=== PATIENT | female | born 1945 | race Caucasian/White ===

== ENCOUNTER → 2016-09-16 | Outpatient (CLI) | payer MEDICARE, OTHER ==
[2016-09-16 18:41] LABS: COMPLEMENT C4 12.4 MG/DL (10-40); IMMUNOGLOBULIN A 96.3 MG/DL (70-400)
[2016-09-16 19:17] LABS: IMMUNOGLOBULIN E 5.5 IU/ML (<100)
[2016-09-19 10:14] LABS: ALPHA 1 ANTITRYPSIN 153 mg/dL (90-200); D001-IgE D pteronyssinus <0.10 kU/L (Class 0); E001-IgE Cat Epith/Dander < 0.10 kU/L (Class 0); E005-IgE Dog Dander < 0.10 kU/L (Class 0); F002-IgE Milk < 0.10 kU/L (Class 0); F004-IgE Wheat < 0.10 kU/L (Class 0); F013-IgE Peanut < 0.10 kU/L (Class 0); F014-IgE Soybean < 0.10 kU/L (Class 0); F026-IgE Pork < 0.10 kU/L (Class 0); F027-IgE Beef < 0.10 kU/L (Class 0); F245-IgE Egg, Whole < 0.10 kU/L (Class 0); FX02-IgE Food Mix (Sea Foods) Negative (.); G002-IgE Bermuda Grass < 0.10 kU/L (Class 0); G008-IgE Kentucky Bluegrass < 0.10 kU/L (Class 0); M001-IgE Penicillium chrysogen < 0.10 kU/L (Class 0); M002 IgE Cladosporium herbaru < 0.10 kU/L (Class 0); M003 IgE Aspergillus fumigatu < 0.10 kU/L (Class 0); M006-IgE Alternaria alternata < 0.10 kU/L (Class 0); T001-IgE Maple/Box Elder < 0.10 kU/L (Class 0); T003-IgE Common Silver Birch < 0.10 kU/L (Class 0); T007-IgE Oak, White < 0.10 kU/L (Class 0); T008-IgE Elm, American < 0.10 kU/L (Class 0); T015-IgE Ash, White < 0.10 kU/L (Class 0); T041-IgE Hickory, White < 0.10 kU/L (Class 0); W001-IgE Ragweed, Short < 0.10 kU/L (Class 0); W009-IgE Plantain, English < 0.10 kU/L (Class 0); W014-IgE Pigweed, Rough < 0.10 kU/L (Class 0); W018-IgE Sheep Sorrel < 0.10 kU/L (Class 0)
== END ==
LOC: M WUC 15:19
PROVIDERS: ATTEND Allergy & Immunology
DX: J30.1 Allergic rhinitis due to pollen (principal); J30.2 Other seasonal allergic rhinitis; J32.0 Chronic maxillary sinusitis; H10.45 Other chronic allergic conjunctivitis; J45.20 Mild intermittent asthma, uncomplicated; R05 Cough

== ENCOUNTER → 2017-06-26 | Outpatient (CLI) | payer MEDICARE, OTHER ==
[2017-06-26 13:15] LABS: MEAN CORPUSCULAR HGB CONC 33.4 g/dl (32.0-36.5); MEAN CORPUSCULAR VOLUME 89.9 fl (80.0-96.0); PLATELET COUNT, AUTOMATED 361 10^3/uL (150-450)
[2017-06-26 13:51] LABS: ALBUMIN 3.9 GM/DL (3.2-5.2); ALBUMIN/GLOBULIN RATIO 1.77 (1.00-1.93); ALKALINE PHOSPHATASE 95 U/L (45-117); ALT/SGPT 26 U/L (12-78); ANION GAP 9 MEQ/L (8-16); AST/SGOT 18 U/L (7-37); BILIRUBIN,TOTAL 0.6 MG/DL (0.2-1.0); BLOOD UREA NITROGEN 16 MG/DL (7-18); CARBON DIOXIDE LEVEL 24 MEQ/L (21-32); CHLORIDE LEVEL 101 MEQ/L (98-107); CHOLESTEROL LEVEL 214 MG/DL (<200); CREATININE FOR GFR 0.63 MG/DL (0.55-1.02); FREE T4 1.33 NG/DL (0.76-1.46); GLOMERULAR FILTRATION RATE > 60.0 (>39); GLUCOSE, FASTING 93 MG/DL (83-110); POTASSIUM SERUM 4.3 MEQ/L (3.5-5.1); SODIUM LEVEL 134 MEQ/L (136-145); TOTAL PROTEIN 6.1 GM/DL (6.4-8.2); TRIGLYCERIDES LEVEL 83 MG/DL (<150)
== END ==
LOC: M WUC 09:34
PROVIDERS: ATTEND Family Medicine
DX: J44.9 Chronic obstructive pulmonary disease, unspecified (principal); E11.9 Type 2 diabetes mellitus without complications; E78.2 Mixed hyperlipidemia

== ENCOUNTER → 2017-09-11 | Outpatient (REF) | payer MEDICARE, OTHER | LOC: M LAB REF 15:18 | DX: D48.5 Neoplasm of uncertain behavior of skin (principal) | CPT/HCPCS: 88305 ==

== ENCOUNTER 2017-11-17 15:21 | Emergency (ER) | payer MEDICARE, OTHER ==
[2017-11-17 17:36] LABS: BASO # 0.1 10^3/uL (0.0-0.2); BASO % 0.4 % (0.0-1.0); EOS # 0.1 10^3/uL (0.0-0.50); EOS % 0.4 % (0.0-3.0); HEMATOCRIT 41.3 % (36.0-47.0); IMMATURE GRANULOCYTE % 0.5 % (0-3.0); LYMPH # 1.4 10^3/uL (1.5-4.5); MEAN CORPUSCULAR HEMOGLOBIN 30.4 pg (27.0-33.0); MEAN CORPUSCULAR HGB CONC 33.9 g/dl (32.0-36.5); MEAN CORPUSCULAR VOLUME 89.8 fl (80.0-96.0); MONO # 0.7 10^3/uL (0.0-0.8); MONO % 5.8 % (0.0-5.0); NEUTROPHILS # 10.5 10^3/uL (1.8-7.7); NEUTROPHILS % 81.9 % (36.0-66.0); PLATELET COUNT, AUTOMATED 424 10^3/uL (150-450); RED CELL DISTRIBUTION WIDTH 13.4 % (11.5-14.5); WHITE BLOOD COUNT 12.9 10^3/uL (4.0-10.0)
[2017-11-17 17:47] LABS: INR 0.93; PROTHROMBIN TIME 12.5 SECONDS (12.4-14.5)
[2017-11-17 17:48] LABS: PARTIAL THROMBOPLASTIN TIME 27.1 SECONDS (26.8-37.9)
[2017-11-17 17:49] LABS: ANION GAP 6 MEQ/L (8-16); BLOOD UREA NITROGEN 21 MG/DL (7-18); CALCIUM LEVEL 9.5 MG/DL (8.8-10.2); CARBON DIOXIDE LEVEL 27 MEQ/L (21-32); CHLORIDE LEVEL 101 MEQ/L (98-107); CK-MB VALUE MASS 5.2 NG/ML (<3.6); CPK CREATINE PHOSPHOKINASE 265 U/L (26-192); CREATININE FOR GFR 0.64 MG/DL (0.55-1.30); GLOMERULAR FILTRATION RATE > 60.0 (>39); GLUCOSE, FASTING 109 MG/DL (70-100); MB/CK RELATIVE INDEX 1.96 (< OR =4); POTASSIUM SERUM 4.6 MEQ/L (3.5-5.1); SODIUM LEVEL 134 MEQ/L (136-145); TROPONIN I < 0.02 NG/ML (< 0.10)
[2017-11-17] MEDS: MECLIZINE 25 MG TABLET PO ×2 (18:15)
[2017-11-17] MEDS: LABETALOL HCL 100 MG/20 ML VIAL IV ×2 (18:16)
== END 2017-11-17 20:01 | disposition home or self-care (01) ==
LOC: M ED 15:21
DX: R42 Dizziness and giddiness (principal); H83.09 Labyrinthitis, unspecified ear; I10 Essential (primary) hypertension; J45.909 Unspecified asthma, uncomplicated; K21.9 Gastro-esophageal reflux disease without esophagitis; Z79.899 Other long term (current) drug therapy; Z88.8 Allergy status to other drugs, medicaments and biological substances; Z87.891 Personal history of nicotine dependence; Z98.890 Other specified postprocedural states; Z82.49 Family history of ischemic heart disease and other diseases of the circulatory system
CPT/HCPCS: 71046

== ENCOUNTER → 2017-11-18 | Outpatient (REF) | payer MEDICARE, OTHER ==
[2017-11-18 20:37] LABS: ANION GAP 6 MEQ/L (8-16); BLOOD UREA NITROGEN 19 MG/DL (7-18); CALCIUM LEVEL 9.1 MG/DL (8.8-10.2); CARBON DIOXIDE LEVEL 24 MEQ/L (21-32); CHLORIDE LEVEL 104 MEQ/L (98-107); CK-MB VALUE MASS 3.6 NG/ML (<3.6); CPK CREATINE PHOSPHOKINASE 214 U/L (26-192); CREATININE FOR GFR 0.66 MG/DL (0.55-1.30); GLOMERULAR FILTRATION RATE > 60.0 (>39); GLUCOSE, FASTING 97 MG/DL (70-100); MB/CK RELATIVE INDEX 1.68 (< OR =4); POTASSIUM SERUM 4.5 MEQ/L (3.5-5.1); SODIUM LEVEL 134 MEQ/L (136-145); TROPONIN I < 0.02 NG/ML (< 0.10)
== END ==
LOC: M SFHCADAM 14:22
DX: R94.31 Abnormal electrocardiogram [ECG] [EKG] (principal)
CPT/HCPCS: 82550

== ENCOUNTER → 2017-11-19 | Outpatient (CLI) | payer MEDICARE, OTHER ==
[~2017-11-19] MED LIST: PROHANCE 279.3MG/ML 15ML VIAL (A9576) As Ordered
== END ==
LOC: M RAD 18:34
DX: I65.23 Occlusion and stenosis of bilateral carotid arteries (principal); R27.0 Ataxia, unspecified; I10 Essential (primary) hypertension
CPT/HCPCS: A9576

== ENCOUNTER → 2017-11-21 | Outpatient (CLI) | payer MEDICARE, OTHER | LOC: M RAD 11:57 | DX: I10 Essential (primary) hypertension (principal); R27.0 Ataxia, unspecified; R94.31 Abnormal electrocardiogram [ECG] [EKG] ==

== ENCOUNTER → 2017-11-21 | Outpatient (CLI) | payer MEDICARE, OTHER | LOC: M CARPUL 10:47 | DX: R94.31 Abnormal electrocardiogram [ECG] [EKG] (principal); I10 Essential (primary) hypertension; R27.0 Ataxia, unspecified | CPT/HCPCS: 93880 ==

== ENCOUNTER → 2017-12-27 | Outpatient (CLI) | payer MEDICARE, OTHER ==
[2017-12-27 13:12] LABS: HEMATOCRIT 39.4 % (36.0-47.0); HEMOGLOBIN 13.8 g/dl (12.0-15.5); MEAN CORPUSCULAR HEMOGLOBIN 30.7 pg (27.0-33.0); MEAN CORPUSCULAR VOLUME 87.6 fl (80.0-96.0); PLATELET COUNT, AUTOMATED 438 10^3/uL (150-450); WHITE BLOOD COUNT 8.5 10^3/uL (4.0-10.0)
[2017-12-27 13:25] LABS: ALBUMIN 4.1 GM/DL (3.2-5.2); ALBUMIN/GLOBULIN RATIO 1.58 (1.00-1.93); ALKALINE PHOSPHATASE 120 U/L (45-117); ALT/SGPT 32 U/L (12-78); ANION GAP 9 MEQ/L (8-16); AST/SGOT 25 U/L (7-37); BILIRUBIN,TOTAL 0.8 MG/DL (0.2-1.0); BLOOD UREA NITROGEN 20 MG/DL (7-18); CALCIUM LEVEL 9.3 MG/DL (8.8-10.2); CARBON DIOXIDE LEVEL 29 MEQ/L (21-32); CHLORIDE LEVEL 93 MEQ/L (98-107); CHOLESTEROL LEVEL 113 MG/DL (<200); CHOLESTEROL RISK RATIO 1.982 (<5); CREATININE FOR GFR 0.69 MG/DL (0.55-1.30); GLOMERULAR FILTRATION RATE > 60.0 (>39); GLUCOSE, FASTING 111 MG/DL (70-100); HDL CHOLESTEROL 57 MG/DL (>40); LDL CHOLESTEROL 37.8 MG/DL (<100); NON-HDL-C 56 MG/DL; POTASSIUM SERUM 3.8 MEQ/L (3.5-5.1); SODIUM LEVEL 131 MEQ/L (136-145); TOTAL PROTEIN 6.7 GM/DL (6.4-8.2); TRIGLYCERIDES LEVEL 91 MG/DL (<150)
[2017-12-27 13:39] LABS: ESTIMATED AVERAGE GLUCOSE 140 MG/DL (60-110); HEMOGLOBIN A1c 6.5 %
== END ==
LOC: M WUC 09:44
DX: I63.9 Cerebral infarction, unspecified (principal); E78.2 Mixed hyperlipidemia; E74.9 Disorder of carbohydrate metabolism, unspecified; Z79.899 Other long term (current) drug therapy
CPT/HCPCS: 80053

== ENCOUNTER → 2018-01-09 | Outpatient (CLI) | payer MEDICARE, OTHER | LOC: M WHC 10:15 | DX: Z12.31 Encounter for screening mammogram for malignant neoplasm of breast (principal); Z90.12 Acquired absence of left breast and nipple; Z85.3 Personal history of malignant neoplasm of breast | CPT/HCPCS: 77067 ==

== ENCOUNTER → 2018-04-01 | Outpatient (CLI) | payer MEDICARE, OTHER ==
[2018-04-01 12:53] LABS: ANION GAP 11 MEQ/L (8-16); BLOOD UREA NITROGEN 19 MG/DL (7-18); CALCIUM LEVEL 9.1 MG/DL (8.8-10.2); CARBON DIOXIDE LEVEL 28 MEQ/L (21-32); CHLORIDE LEVEL 88 MEQ/L (98-107); CREATININE FOR GFR 0.64 MG/DL (0.55-1.30); GLOMERULAR FILTRATION RATE > 60.0 (>39); GLUCOSE, FASTING 105 MG/DL (70-100); POTASSIUM SERUM 4.1 MEQ/L (3.5-5.1); SODIUM LEVEL 127 MEQ/L (136-145)
[2018-04-01 13:48] LABS: ESTIMATED AVERAGE GLUCOSE 123 MG/DL (60-110); HEMOGLOBIN A1c 5.9 %
== END ==
LOC: M WUC 10:25
DX: R73.03 Prediabetes (principal)
CPT/HCPCS: 83036

== ENCOUNTER 2018-07-29 14:29 | Day surgery (SDC) | payer MEDICARE, OTHER ==
[~2018-07-29 14:29] MED LIST changes: +LIDOCAINE 2% INJ 100 MG/5 ML SDV (FOR ANES.) As Ordered; +MIDAZOLAM INJ 2 MG/2 ML VIAL (J2250) As Ordered; -PROHANCE 279.3MG/ML 15ML VIAL (A9576) As Ordered; +PROPOFOL 500 MG/50 ML VIAL As Ordered; +fentaNYL 100 MCG/2 ML INJECTION (J3010) As Ordered
[2018-07-29] MEDS ORDERED: ceFAZolin 1GM INJ (J0690 PER 500MG) As Ordered (15:10)
[2018-07-29] MEDS: ceFAZolin SOD 1 GM in D5W MINI-BAG PLUS 50 ML IV (15:30)
[2018-07-29] MEDS: LIDOCAINE 1% SDV INJ 30 ML VIAL As Ordered (15:43)
== END 2018-07-29 16:40 | disposition home or self-care (01) ==
LOC: M SDC 14:29
DX: I63.9 Cerebral infarction, unspecified (principal); I10 Essential (primary) hypertension; E78.5 Hyperlipidemia, unspecified; Z79.899 Other long term (current) drug therapy; K21.9 Gastro-esophageal reflux disease without esophagitis; Z79.01 Long term (current) use of anticoagulants; Z79.82 Long term (current) use of aspirin; Z92.21 Personal history of antineoplastic chemotherapy; J45.909 Unspecified asthma, uncomplicated
CPT/HCPCS: 33282

== ENCOUNTER → 2018-10-29 | Outpatient (REF) | payer MEDICARE, OTHER ==
[~2018-10-29] MED LIST changes: +AMLO5TAB6 PO; +ASPI1TAB PO; +ATOR40TA75 PO; +AZEL0.055; +CALC1TAB26 PO; +GLUC1CAP10 PO; +INDA25TAB PO; +IRBE150T12 PO; -LIDOCAINE 2% INJ 100 MG/5 ML SDV (FOR ANES.) As Ordered; +MECL-68 PO; +MELO7.5T7 PO; -MIDAZOLAM INJ 2 MG/2 ML VIAL (J2250) As Ordered; +MONT10TA2 PO; +MUCI30TA5 PO; +PANT40TA3 PO; +PROAAER10 INH; -PROPOFOL 500 MG/50 ML VIAL As Ordered; +SUPETAB25 PO; +SYMB16INH INH; +TESS100C PO; +VALS1TAB47 PO; +VITA100067 PO; +WOMETAB9 PO; +ZYRT10CA5 PO; -fentaNYL 100 MCG/2 ML INJECTION (J3010) As Ordered
[2018-10-29 13:02] LABS: HEMATOCRIT 37.8 % (36.0-47.0); HEMOGLOBIN 13.4 g/dl (12.0-15.5); MEAN CORPUSCULAR HEMOGLOBIN 30.8 pg (27.0-33.0); MEAN CORPUSCULAR HGB CONC 35.4 g/dl (32.0-36.5); MEAN CORPUSCULAR VOLUME 86.9 fl (80.0-96.0); PLATELET COUNT, AUTOMATED 452 10^3/uL (150-450); RED BLOOD COUNT 4.35 10^6/uL (4.00-5.40); WHITE BLOOD COUNT 9.4 10^3/uL (4.0-10.0)
[2018-10-29 13:18] LABS: ALBUMIN 4.1 GM/DL (3.2-5.2); ALT/SGPT 30 U/L (12-78); BILIRUBIN,TOTAL 1.1 MG/DL (0.2-1.0); BLOOD UREA NITROGEN 11 MG/DL (7-18); CALCIUM LEVEL 9.4 MG/DL (8.8-10.2); CARBON DIOXIDE LEVEL 30 MEQ/L (21-32); CHLORIDE LEVEL 83 MEQ/L (98-107); CHOLESTEROL LEVEL 139 MG/DL (<200); CHOLESTEROL RISK RATIO 1.759 (<5); CREATININE FOR GFR 0.51 MG/DL (0.55-1.30); GLOMERULAR FILTRATION RATE > 60.0 (>39); GLUCOSE, FASTING 109 MG/DL (70-100); HDL CHOLESTEROL 79 MG/DL (>40); LDL CHOLESTEROL 47 MG/DL (<100); NON-HDL-C 60 MG/DL; POTASSIUM SERUM 3.9 MEQ/L (3.5-5.1); SODIUM LEVEL 121 MEQ/L (136-145); TOTAL PROTEIN 6.6 GM/DL (6.4-8.2); TRIGLYCERIDES LEVEL 63 MG/DL (<150)
[2018-10-29 14:11] LABS: HEMOGLOBIN A1c 5.9 %
== END ==
LOC: M SFHCADAM 11:11
PROVIDERS: ATTEND Family Medicine
DX: R73.03 Prediabetes (principal); E78.2 Mixed hyperlipidemia; J44.9 Chronic obstructive pulmonary disease, unspecified; I63.9 Cerebral infarction, unspecified
CPT/HCPCS: 80053; 80061; 83036; 85027; G0463

== ENCOUNTER → 2019-01-12 | Outpatient (CLI) | payer MEDICARE, OTHER ==
[~2019-01-12] MED LIST changes: -ASPI1TAB PO; +ASPI81TA26 PO; -VALS1TAB47 PO; +VALS1TAB67 PO
--- NOTE | 2019-01-12 14:09 | REP ---
RIGHT BREAST MAMMOGRAM WITH 3D TOMOSYNTHESIS: HISTORY: Left breast cancer and mastectomy 1989. COMPARISON: 01/09/2018 as well as multiple other prior studies. There is moderate fibroglandular tissue in the right breast. There is no change since the prior studies. There is no new mass or architectural distortion. No clustered microcalcifications are seen, with scattered benign appearing calcifications diffusely. IMPRESSION: BIRADS 1: BI-RADS/ACR category 1 mammogram. Negative Mammogram. ACR 1 negative mammogram right breast in this patient status post left mastectomy. Suggest followup mammogram in 1 year. This mammogram was interpreted with the aid of an FDA-approved computer-aided detection system. A. Negative x-ray reports should not delay biopsy if a dominant or clinically suspicious mass is present. B. Four to eight percent of cancers are not identified by x-ray. C. Adenosis and dense breasts may obscure an underlying neoplasm. The patient states she/he had a clinical breast exam in December 2018. The patient letter being requested is M1.
== END ==
LOC: M WHC 10:34
PROVIDERS: ATTEND Nurse Practitioner Family
DX: Z12.31 Encounter for screening mammogram for malignant neoplasm of breast (principal); Z85.3 Personal history of malignant neoplasm of breast; Z90.12 Acquired absence of left breast and nipple
CPT/HCPCS: 77063; 77067; G0463

== ENCOUNTER → 2019-01-19 | Outpatient (CLI) | payer MEDICARE, OTHER ==
[2019-01-19 13:22] LABS: IMMUNOGLOBULIN A 91.7 MG/DL (70-400); IMMUNOGLOBULIN M 96.8 MG/DL (40-230)
--- NOTE | 2019-01-20 10:47 | REP ---
Chest two views HISTORY: Checkup exam Comparison: 11/17/2017 The lungs are clear. The heart is normal in size. The pulmonary vasculature is normal in appearance. The patient is status post left mastectomy. The bony structure is intact. IMPRESSION: No acute disease. Electronically Signed by Christiano Soliz MD 01/19/2019 09:23 A
[2019-01-25 16:31] LABS: D001-IgE D pteronyssinus <0.10 kU/L (Class 0); E001-IgE Cat Epith/Dander < 0.10 kU/L (Class 0); E005-IgE Dog Dander < 0.10 kU/L (Class 0); F002-IgE Milk < 0.10 kU/L (Class 0); F004-IgE Wheat < 0.10 kU/L (Class 0); F013-IgE Peanut < 0.10 kU/L (Class 0); F014-IgE Soybean < 0.10 kU/L (Class 0); F026-IgE Pork < 0.10 kU/L (Class 0); F027-IgE Beef < 0.10 kU/L (Class 0); F245-IgE Egg, Whole < 0.10 kU/L (Class 0); FX02-IgE Food Mix (Sea Foods) Negative (.); G002-IgE Bermuda Grass < 0.10 kU/L (Class 0); G008-IgE Kentucky Bluegrass < 0.10 kU/L (Class 0); M001-IgE Penicillium chrysogen < 0.10 kU/L (Class 0); M002 IgE Cladosporium herbaru < 0.10 kU/L (Class 0); M003 IgE Aspergillus fumigatu < 0.10 kU/L (Class 0); M006-IgE Alternaria alternata < 0.10 kU/L (Class 0); T001-IgE Maple/Box Elder < 0.10 kU/L (Class 0); T003-IgE Common Silver Birch < 0.10 kU/L (Class 0); T006-IgE Cedar, Mountain < 0.10 kU/L (Class 0); T007-IgE Oak, White < 0.10 kU/L (Class 0); T008-IgE Elm, American < 0.10 kU/L (Class 0); T015-IgE Ash, White < 0.10 kU/L (Class 0); T041-IgE Hickory, White < 0.10 kU/L (Class 0); T070-IgE White Mulberry < 0.10 kU/L (Class 0); W001-IgE Ragweed, Short < 0.10 kU/L (Class 0); W009-IgE Plantain, English < 0.10 kU/L (Class 0); W014-IgE Pigweed, Rough < 0.10 kU/L (Class 0); W018-IgE Sheep Sorrel < 0.10 kU/L (Class 0)
== END ==
LOC: M WUC 08:44
PROVIDERS: ATTEND Nurse Practitioner Family
DX: J45.20 Mild intermittent asthma, uncomplicated (principal); J30.1 Allergic rhinitis due to pollen; J30.89 Other allergic rhinitis; J32.0 Chronic maxillary sinusitis

== ENCOUNTER → 2019-02-02 | Outpatient (CLI) | payer MEDICARE, OTHER ==
--- NOTE | 2019-02-02 15:49 | REP ---
CT of the chest without IV contrast: There are no comparison chest CTs. There is a comparison plain film study dated 01/19/2019. The patient has history of breast carcinoma. There is a left breast prosthesis. There are surgical clips in the left axilla. The patient has additional history of appendectomy and ovarian wedge resection. There are no pulmonary infiltrates. There are no pleural effusions. There are no lung masses or nodules. There is no mediastinal or axillary lymph node enlargement. In the absence of IV contrast the study is insensitive for hilar lymph node enlargement. The thoracic aorta is unremarkable. There is calcified atheroma in the coronary arteries. Cardiac size is normal. In the upper abdomen there is no adrenal mass. There is calcified vascular atheroma in the splenic artery. Impression: Essentially negative CT study of the chest. There are no lung masses or nodules. There are no acute infiltrates or pleural effusions. There is no adenopathy. Left mastectomy with breast implant, appendectomy and history of ovarian wedge resection. Electronically Signed by Marcos Mosquera MD 02/02/2019 03:41 P
== END ==
LOC: M RAD 14:25
PROVIDERS: ATTEND Nurse Practitioner Family
DX: R91.8 Other nonspecific abnormal finding of lung field (principal); R05 Cough

== ENCOUNTER → 2019-03-25 | Outpatient (CLI) | payer MEDICARE, OTHER ==
[~2019-03-25] MED LIST changes: -MECL-68 PO; +MECL1TAB31 PO
[2019-03-25 15:25] LABS: IMMUNOGLOBULIN A 93.3 MG/DL (70-400); IMMUNOGLOBULIN M 99.7 MG/DL (40-230)
[2019-03-29 11:21] LABS: D001-IgE D pteronyssinus <0.10 kU/L (Class 0); E001-IgE Cat Epith/Dander < 0.10 kU/L (Class 0); E003-IGE HORSE EPITHELIA/DAND <0.10 kU/L (Class 0); E004-IGE COW DANDER <0.10 kU/L (Class 0); E005-IgE Dog Dander < 0.10 kU/L (Class 0); F002-IgE Milk < 0.10 kU/L (Class 0); F004-IgE Wheat < 0.10 kU/L (Class 0); F013-IgE Peanut < 0.10 kU/L (Class 0); F014-IgE Soybean < 0.10 kU/L (Class 0); F026-IgE Pork < 0.10 kU/L (Class 0); F027-IgE Beef < 0.10 kU/L (Class 0); F245-IgE Egg, Whole < 0.10 kU/L (Class 0); FX02-IgE Food Mix (Sea Foods) Negative (.); G002-IgE Bermuda Grass < 0.10 kU/L (Class 0); G008-IgE Kentucky Bluegrass < 0.10 kU/L (Class 0); M001-IgE Penicillium chrysogen < 0.10 kU/L (Class 0); M002 IgE Cladosporium herbaru < 0.10 kU/L (Class 0); M003 IgE Aspergillus fumigatu < 0.10 kU/L (Class 0); M006-IgE Alternaria alternata < 0.10 kU/L (Class 0); T001-IgE Maple/Box Elder < 0.10 kU/L (Class 0); T003-IgE Common Silver Birch < 0.10 kU/L (Class 0); T006-IgE Cedar, Mountain < 0.10 kU/L (Class 0); T007-IgE Oak, White < 0.10 kU/L (Class 0); T008-IgE Elm, American < 0.10 kU/L (Class 0); T015-IgE Ash, White < 0.10 kU/L (Class 0); T041-IgE Hickory, White < 0.10 kU/L (Class 0); T070-IgE White Mulberry < 0.10 kU/L (Class 0); W001-IgE Ragweed, Short < 0.10 kU/L (Class 0); W009-IgE Plantain, English < 0.10 kU/L (Class 0); W014-IgE Pigweed, Rough < 0.10 kU/L (Class 0); W018-IgE Sheep Sorrel < 0.10 kU/L (Class 0)
== END ==
LOC: M WUC 10:50
PROVIDERS: ATTEND Nurse Practitioner Family
DX: J30.1 Allergic rhinitis due to pollen (principal); J30.89 Other allergic rhinitis

== ENCOUNTER → 2019-10-25 | Outpatient (CLI) | payer MEDICARE, OTHER ==
[~2019-10-25] MED LIST changes: -IRBE150T12 PO; +IRBE150T7 PO; -MONT10TA2 PO; +MONT10TA4 PO
[2019-10-25 11:19] LABS: HEMATOCRIT 38.1 % (36.0-47.0); HEMOGLOBIN 13.4 g/dl (12.0-15.5); MEAN CORPUSCULAR HEMOGLOBIN 31.7 pg (27.0-33.0); MEAN CORPUSCULAR HGB CONC 35.2 g/dl (32.0-36.5); MEAN CORPUSCULAR VOLUME 90.1 fl (80.0-96.0); PLATELET COUNT, AUTOMATED 399 10^3/uL (150-450); RED BLOOD COUNT 4.23 10^6/uL (4.00-5.40); WHITE BLOOD COUNT 6.7 10^3/uL (4.0-10.0)
[2019-10-25 11:59] LABS: HEMOGLOBIN A1c 5.8 %
[2019-10-25 12:36] LABS: ALT/SGPT 38 U/L (12-78); BILIRUBIN,TOTAL 0.9 MG/DL (0.2-1.0); BLOOD UREA NITROGEN 15 MG/DL (7-18); CALCIUM LEVEL 9.3 MG/DL (8.8-10.2); CARBON DIOXIDE LEVEL 28 MEQ/L (21-32); CHLORIDE LEVEL 90 MEQ/L (98-107); CHOLESTEROL LEVEL 130 MG/DL (<200); CHOLESTEROL RISK RATIO 1.585 (<5); CREATININE FOR GFR 0.54 MG/DL (0.55-1.30); GLOMERULAR FILTRATION RATE > 60.0 (>39); GLUCOSE, FASTING 96 MG/DL (70-100); HDL CHOLESTEROL 82 MG/DL (>40); LDL CHOLESTEROL 42 MG/DL (<100); NON-HDL-C 48 MG/DL; SODIUM LEVEL 124 MEQ/L (136-145); TOTAL PROTEIN 6.1 GM/DL (6.4-8.2); TRIGLYCERIDES LEVEL 32 MG/DL (<150)
== END ==
LOC: M WUC 09:55
PROVIDERS: ATTEND Family Medicine
DX: I11.9 Hypertensive heart disease without heart failure (principal); R73.03 Prediabetes; E78.2 Mixed hyperlipidemia; K21.9 Gastro-esophageal reflux disease without esophagitis

== ENCOUNTER → 2020-01-14 | Outpatient (CLI) | payer MEDICARE, OTHER ==
--- NOTE | 2020-01-14 14:55 | REPMRS ---
Patient History The patient states she had a clinical breast exam in December 2019. Family history of breast cancer at age 65 in sister. Malignant mastectomy of the left breast, October 19, 1989. Chemotherapy, 1989. Took tamoxifen for 5 years. Digital Woman Screen Mammo: January 14, 2020 - Exam #: [id number] Bilateral CC and MLO view(s) were taken. Technologist: Viviane Torres, Technologist Prior study comparison: January 12, 2019, bilateral digital woman screen mammo performed at [facility]. January 09, 2018, digital woman screen mammo performed at [facility]. 2017, bilateral screening 3D/tomosynthesis, performed at [facility]. FINDINGS: The breast tissue is heterogeneously dense. This may lower the sensitivity of mammography. The Volpara volumetric breast density category is: C. There has been no change in the appearance of the ri breast parenchyma in the interval since the prior examination. No mass, architectural distortion, or microcalcific grouping has developed. No suspicious finding. 3-D tomosynthesis shows no additional findings. Assessment: BI-RADS/ACR category 2 mammogram. Benign Findings. Recommendation Routine screening mammogram of the right breast in 1 year. This mammogram was interpreted with the aid of an FDA-approved computer-aided dectection system. Electronically Signed By: Andrez Mendoza MD 01/14/20 [id number]
== END ==
LOC: M WHC 13:22
PROVIDERS: ATTEND Nurse Practitioner Family
DX: Z12.31 Encounter for screening mammogram for malignant neoplasm of breast (principal); Z90.12 Acquired absence of left breast and nipple; Z85.3 Personal history of malignant neoplasm of breast; Z80.3 Family history of malignant neoplasm of breast; Z92.21 Personal history of antineoplastic chemotherapy; Z92.29 Personal history of other drug therapy
CPT/HCPCS: 77063; 77067; G0463

== ENCOUNTER → 2020-08-25 | Outpatient (REF) | payer MEDICARE, OTHER ==
[~2020-08-25] MED LIST changes: +ADVA230A INH; +AMLO1TAB24 PO; -AMLO5TAB6 PO; +CLOP75TA2 PO; +MONT10TA10 PO; -MONT10TA4 PO; +PANT40TA29 PO; -PANT40TA3 PO
== END ==
LOC: M LAB REF 09:24
PROVIDERS: ATTEND Dermatology
DX: D23.39 Other benign neoplasm of skin of other parts of face (principal)

== ENCOUNTER 2020-08-26 00:06 | Emergency (ER) | payer MEDICARE, OTHER ==
[~2020-08-26] VITALS: Ht 147.3 cm; Wt 49.3 kg
[~2020-08-26 00:06] MED LIST changes: -ADVA230A INH; -CLOP75TA2 PO; -MONT10TA10 PO; +MONT5TAB2 PO
[2020-08-26] MEDS ORDERED: ADVA230A INH (00:18)
[2020-08-26] MEDS ORDERED: CLOP75TA2 PO (00:18)
[2020-08-26 06:41] VITALS: BP 136/74
== END 2020-08-26 06:43 | disposition home or self-care (01) ==
LOC: M ED 00:06
DX: L76.31 Postprocedural hematoma of skin and subcutaneous tissue following a dermatologic procedure (principal); T45.525A Adverse effect of antithrombotic drugs, initial encounter; I10 Essential (primary) hypertension; E78.5 Hyperlipidemia, unspecified; E28.2 Polycystic ovarian syndrome; Z86.73 Personal history of transient ischemic attack (TIA), and cerebral infarction without residual deficits; Z85.3 Personal history of malignant neoplasm of breast; Z85.828 Personal history of other malignant neoplasm of skin; Z79.82 Long term (current) use of aspirin; Z79.899 Other long term (current) drug therapy; Z88.8 Allergy status to other drugs, medicaments and biological substances

== ENCOUNTER 2020-10-27 12:00 | Emergency (ER) | payer MEDICARE, OTHER ==
[~2020-10-27] VITALS: Ht 147.3 cm; Wt 47.7 kg
[~2020-10-27 12:00] MED LIST changes: +ADVA230A INH; +CLOP75TA2 PO; +MONT10TA10 PO; -MONT5TAB2 PO
--- NOTE | 2020-10-27 12:34 | REP ---
INDICATION: fall on blood thinner. COMPARISON: Comparison CT study of the brain November 17, 2017.. TECHNIQUE: Helical scanning is acquired. 5 mm axial images were reformatted. Coronal MPR images were generated. FINDINGS: Bone window settings demonstrate an intact bony calvarium. No skull fracture is seen. There is moderate vascular calcification in the distal vertebral and distal internal carotid arteries bilaterally. The visualized paranasal sinuses are clear. No intraorbital abnormality is seen. There is generalized volume loss. There are periventricular white matter low-density areas bilaterally consistent with small vessel atherosclerotic changes. There is an old lacunar infarct in the left thalamus. There is no evidence of intracranial hemorrhage. No mass, acute infarction, extra-axial fluid collection, or midline shift. IMPRESSION: Generalized volume loss. Small vessel atherosclerotic changes and vascular calcification unchanged from the November 17, 2017 prior study. There is an old lacunar infarct in the left thalamus. No acute intracranial abnormality.. <Electronically signed by Andrez Mendoza > 10/27/20 [id number]
--- NOTE | 2020-10-27 12:37 | REP ---
INDICATION: fall on blood thinner. COMPARISON: None. TECHNIQUE: Helical scanning is acquired and overlapping 2 mm high resolution axial images were generated and reviewed at bone and soft tissue window settings. Coronal and sagittal multiplanar re-formations images are generated. FINDINGS: There is straightening of the normal cervical lordosis. The C3-4, C4-5, and C5-6 disc spaces are fused. There is discogenic spurring and osteophytic ridging posteriorly at C4-5 and C5-6 and to a lesser extent at C6-7. No fracture is seen. The right C3-4 facet joint appears ankylosed as well. Degenerative disc disease is noted at C2-3. Vascular calcification is visible. No perispinal or intraspinal hematoma is appreciated. There is right-sided uncovertebral spurring at C5-6. A levoconvex curve is noted in the cervical spine on coronal multiplanar re-formation images.. IMPRESSION: Advanced degenerative spondylosis change. Ankylosis across the C3 through C6 disc spaces and. Fusion of the right C3-4 facet. Levoconvex curvature consistent with splinting. No fracture or other acute traumatic abnormality. Vascular calcification.. <Electronically signed by Andrez Mendoza > 10/27/20 [id number]
--- NOTE | 2020-10-27 12:39 | REP ---
INDICATION: fall on blood thinner. COMPARISON: NONE. TECHNIQUE: Helical scanning is acquired and 2 mm axial images re-formatted. Coronal MPR images are generated and reviewed. FINDINGS: There is soft tissue swelling over the left periorbital region and over the nasal bone. There is a dressing over the nasal bone but a nasal bone itself appears to be intact. Inferior maxillary spine is not fractured or displaced. Maxillary sinuses are clear. Ethmoid air cells and frontal sinuses are clear. Sphenoid sinus on the left shows minimal mucosal thickening. Mastoid aeration is normal. Zygomatic arches are intact. No mandibular fracture is appreciated. Orbital margins are intact. IMPRESSION: Periorbital and nasal soft tissue swelling. No facial fracture appreciated. <Electronically signed by Andrez Mendoza > 10/27/20 [id number]
[2020-10-27] MEDS ORDERED: LIDOCAINE W/EPINEPHRINE 1% 20ML VIAL SC ONE (12:45)
[2020-10-27] MEDS ORDERED: LIDOCAINE 1% MDV 20ML VIAL SC ONE (12:50)
[2020-10-27] MEDS ORDERED: CEPH500C PO (13:35)
[2020-10-27] MEDS ORDERED: NEOSPORIN OINT 0.9 GM PKT TOP ONE (13:35)
[2020-10-27 13:53] VITALS: BP 132/63
--- NOTE | 2020-10-27 19:28 | ED PDOC ---
Post-Departure Follow-Up ct c spine faxed to dr burns for fu Marivel Daniel MD Oct 27, 2020 19:28
== END 2020-10-27 14:02 | disposition home or self-care (01) ==
LOC: M ED 12:00
DX: S09.90XA Unspecified injury of head, initial encounter (principal); S00.93XA Contusion of unspecified part of head, initial encounter; S01.21XA Laceration without foreign body of nose, initial encounter; S01.511A Laceration without foreign body of lip, initial encounter; W18.09XA Striking against other object with subsequent fall, initial encounter; Y92.099 Unspecified place in other non-institutional residence as the place of occurrence of the external cause; Y93.9 Activity, unspecified; Y99.9 Unspecified external cause status; M47.812 Spondylosis without myelopathy or radiculopathy, cervical region; M45.2 Ankylosing spondylitis of cervical region; M43.22 Fusion of spine, cervical region; M50.80 Other cervical disc disorders, unspecified cervical region; G31.9 Degenerative disease of nervous system, unspecified; I67.2 Cerebral atherosclerosis; Z86.73 Personal history of transient ischemic attack (TIA), and cerebral infarction without residual deficits; I10 Essential (primary) hypertension; K21.9 Gastro-esophageal reflux disease without esophagitis; J45.909 Unspecified asthma, uncomplicated; Z79.82 Long term (current) use of aspirin; Z79.84 Long term (current) use of oral hypoglycemic drugs; Z79.899 Other long term (current) drug therapy; Z88.8 Allergy status to other drugs, medicaments and biological substances

== ENCOUNTER → 2020-12-04 | Outpatient (CLI) | payer MEDICARE, OTHER ==
[~2020-12-04] MED LIST changes: +CEPH500C PO
[2020-12-04 13:59] LABS: ALBUMIN 3.8 GM/DL (3.2-5.2); ALT/SGPT 32 U/L (12-78); BILIRUBIN,TOTAL 0.6 MG/DL (0.2-1.0); BLOOD UREA NITROGEN 23 MG/DL (7-18); CALCIUM LEVEL 9.1 MG/DL (8.8-10.2); CARBON DIOXIDE LEVEL 28 MEQ/L (21-32); CHLORIDE LEVEL 104 MEQ/L (98-107); CHOLESTEROL LEVEL 136 MG/DL (<200); CHOLESTEROL RISK RATIO 1.837 (<5); CREATININE FOR GFR 0.56 MG/DL (0.55-1.30); GLOMERULAR FILTRATION RATE > 60.0 (>39); GLUCOSE, FASTING 99 MG/DL (70-100); HDL CHOLESTEROL 74 MG/DL (>40); LDL CHOLESTEROL 47 MG/DL (<100); NON-HDL-C 62 MG/DL; POTASSIUM SERUM 4.3 MEQ/L (3.5-5.1); SODIUM LEVEL 137 MEQ/L (136-145); TOTAL PROTEIN 6.2 GM/DL (6.4-8.2); TRIGLYCERIDES LEVEL 76 MG/DL (<150)
[2020-12-04 15:33] LABS: HEMOGLOBIN A1c 5.7 %
== END ==
LOC: M WUC 09:13
PROVIDERS: ATTEND Family Medicine
DX: I11.9 Hypertensive heart disease without heart failure (principal); R73.03 Prediabetes; E78.2 Mixed hyperlipidemia

== ENCOUNTER → 2020-12-12 | Outpatient (CLI) | payer MEDICARE, OTHER ==
--- NOTE | 2020-12-12 16:42 | REP ---
INDICATION: ARTHRITIS OF RIGHT SHOULDER COMPARISON: None. TECHNIQUE: Four views right shoulder. FINDINGS: There is no evidence of acute fracture, dislocation, or intrinsic bone disease.The joint spaces appear unremarkable with no significant arthritic change. There are mild vascular calcifications in the axillary region. IMPRESSION: Essentially negative right shoulder series. <Electronically signed by Marcos Strong > 12/12/20 [id number]
== END ==
LOC: M ADAMS 15:52
PROVIDERS: ATTEND Family Medicine
DX: M19.011 Primary osteoarthritis, right shoulder (principal)
CPT/HCPCS: 73030; G0463

== ENCOUNTER 2020-12-18 12:07 | Emergency (ER) | payer MEDICARE, OTHER ==
[~2020-12-18] VITALS: Ht 147.3 cm; Wt 50.9 kg
--- NOTE | 2020-12-18 12:54 | REP ---
INDICATION: Fall on plavix. COMPARISON: Comparison head CT study October 27, 2020. Comparison prior head CT study November 17, 2017 and prior MRI study November 19, 2017 also reviewed.. TECHNIQUE: Helical scanning is acquired. 5 mm axial images were reformatted. Coronal MPR images were generated. FINDINGS: Digital preliminary mail order sorter radiographs are unremarkable. Bone window settings demonstrate an intact bony calvarium. There is moderate vascular calcification involving the distal vertebral and distal internal carotid arteries bilaterally. No intraorbital abnormality is seen. On soft tissue window settings, there is an old lacunar infarct in the left thalamus. There are old lacunar infarcts in the anterior limbs of the internal capsule bilaterally which are all unchanged from the November 17, 2017 study. Extensive small-vessel changes are noted in the periventricular white matter of the frontal and parietal lobes bilaterally as well. There is no evidence of intracranial hemorrhage. No acute infarction is appreciated. Lateral, 3rd and 4th ventricles are normal in size and position. IMPRESSION: Old bilateral basal ganglia lacunar infarcts. Extensive vascular calcification and small vessel changes. No acute intracranial abnormality seen.. <Electronically signed by Andrez Mendoza > 12/18/20 [id number]
--- NOTE | 2020-12-18 13:14 | REP ---
INDICATION: fall. COMPARISON: Comparison cervical spine CT study October 27, 2020.. TECHNIQUE: Helical scanning is acquired and overlapping 2 mm high resolution axial images were generated and reviewed at bone and soft tissue window settings. Coronal and sagittal multiplanar re-formations images are generated. FINDINGS: There is straightening of the normal cervical lordosis. Advanced degenerative spondylosis changes are noted. The C3-4 C4-5 disc spaces are ankylosed. There is partial fusion of the C5-6 disc space. These findings are unchanged. The C3-4 and C4-5 facets are ankylosed on the right side also unchanged. The left C2-3 facet joint is ankylosed unchanged. There is a stable 3 mm anterior subluxation of the body of C2 on C3 with degenerative disc disease at C2-3. There is a levoconvex curvature in the cervical spine which is unchanged from the comparison study. No fracture or collapse is seen. Anterior discogenic spurring is noted at each cervical level, most pronounced at C5-6. Vascular calcification is noted. No skull base fracture is seen. The lung apices are clear.. IMPRESSION: Degenerative spondylosis changes. Immobile spine multiple fusions.. C3-4 and C4-5 disc and right facet ankylosis again noted. Left C2-3 facet joint ankylosis unchanged 3 mm C2-3 anterior subluxation again noted unchanged.. <Electronically signed by Andrez Mendoza > 12/18/20 [id number]
[2020-12-18] MEDS ORDERED: BOOSTRIX/ADACEL VACCINE (DIPHTH/PERTUSS/ACELL/TETANUS) 0.5ML SYR IM ONE (13:20)
[2020-12-18 13:56] LABS: BASO # 0.1 10^3/uL (0.0-0.2); BASO % 0.9 % (0.0-1.0); EOS # 0.1 10^3/uL (0.0-0.5); EOS % 0.7 % (0.0-3.0); HEMATOCRIT 39.5 % (36.0-47.0); HEMOGLOBIN 13.5 g/dl (12.0-15.5); LYMPH # 1.4 10^3/uL (1.5-5.0); LYMPH % 17.5 % (24.0-44.0); MEAN CORPUSCULAR HEMOGLOBIN 31.1 pg (27.0-33.0); MEAN CORPUSCULAR HGB CONC 34.2 g/dl (32.0-36.5); MONO # 0.8 10^3/uL (0.0-0.8); MONO % 9.7 % (2.0-8.0); NEUTROPHILS # 5.7 10^3/uL (1.5-8.5); NEUTROPHILS % 70.7 % (36.0-66.0); PLATELET COUNT, AUTOMATED 399 10^3/uL (150-450); RED BLOOD COUNT 4.34 10^6/uL (4.00-5.40)
[2020-12-18 14:06] LABS: INR 1.02; PROTHROMBIN TIME 13.6 SECONDS (12.5-14.3)
[2020-12-18 14:44] VITALS: BP 159/80
== END 2020-12-18 15:00 | disposition home or self-care (01) ==
LOC: M ED 12:07
DX: S09.90XA Unspecified injury of head, initial encounter (principal); S00.31XA Abrasion of nose, initial encounter; W01.10XA Fall on same level from slipping, tripping and stumbling with subsequent striking against unspecified object, initial encounter; Y92.098 Other place in other non-institutional residence as the place of occurrence of the external cause; Y93.9 Activity, unspecified; Y99.9 Unspecified external cause status; M54.5 Low back pain; K21.9 Gastro-esophageal reflux disease without esophagitis; I10 Essential (primary) hypertension; E28.2 Polycystic ovarian syndrome; Z85.3 Personal history of malignant neoplasm of breast; R73.09 Other abnormal glucose; M47.812 Spondylosis without myelopathy or radiculopathy, cervical region; M45.2 Ankylosing spondylitis of cervical region; M43.22 Fusion of spine, cervical region; S13.130A Subluxation of C2/C3 cervical vertebrae, initial encounter; I63.81 Other cerebral infarction due to occlusion or stenosis of small artery; I67.2 Cerebral atherosclerosis; Z79.82 Long term (current) use of aspirin; Z79.899 Other long term (current) drug therapy; Z88.8 Allergy status to other drugs, medicaments and biological substances

== ENCOUNTER → 2020-12-23 | Outpatient (CLI) | payer MEDICARE, OTHER ==
--- NOTE | 2020-12-23 14:03 | REP ---
INDICATION: IMPINGEMENT SYNDROME OF RIGHT SHOULDER. COMPARISON: None TECHNIQUE: Coronal oblique T1 and fat suppressed T2. Sagittal oblique fat suppressed T2. Axial [id number] and T2 FLASH. FINDINGS: Moderate hypertrophic degenerative changes seen involving the acromioclavicular joint. The acromion process is type 1. Patchy and linear T2 hyper signal is seen throughout the supraspinatus tendon without evidence of musculotendinous retraction or significant muscular atrophy. There is mild to moderate patchy T2 hyper signal seen throughout the infraspinatus tendon. The subscapularis and teres minor tendons are within normal limits for the biceps tendon resides within the bicipital groove. There is no glenohumeral joint effusion. There is a tiny amount of fluid in the subcoracoid recess. There is mild to moderate glenoid and humeral head chondral thinning. IMPRESSION: 1. Supraspinatus tendinitis/tendinosis. 2. Infraspinatus tendinitis/tendinosis. 3. AC joint DJD with glenohumeral chondromalacia. 4. Seen superficial to and slightly within the deltoid musculature and only partially imaged on this shoulder MRI there is a small amount of T2 hyper signal consistent with edema. Findings likely secondary to muscular strain. <Electronically signed by Anjum Sylvester > 12/23/20 [id number]
== END ==
LOC: M RAD 12:54
PROVIDERS: ATTEND Orthopaedic Surgery Sports Medicine
DX: M75.41 Impingement syndrome of right shoulder (principal); M94.211 Chondromalacia, right shoulder; M19.011 Primary osteoarthritis, right shoulder

== ENCOUNTER 2021-01-12 13:00 | Outpatient (RCR) | payer MEDICARE, OTHER | END 2021-01-15 | LOC: M PT 13:00 | PROVIDERS: ATTEND Orthopaedic Surgery Sports Medicine | DX: M75.41 Impingement syndrome of right shoulder (principal) ==

== ENCOUNTER → 2021-01-16 | Outpatient (CLI) | payer MEDICARE, OTHER ==
--- NOTE | 2021-01-16 11:05 | REPMRS ---
Patient History The patient states she had a clinical breast exam in January 2021. Family history of breast cancer at age 65 in sister. Malignant mastectomy of the left breast, October 19, 1989. Chemotherapy, 1989. Took tamoxifen for 5 years. Malignant left breast mastectomy, 10/19/1989. Patient states no breast complaints today. Patient has signed MRS History Sheet. Digital Woman Screen Mammo: January 16, 2021 - Exam #: [id number] Bilateral CC and MLO view(s) were taken. Technologist: RT Joby Prior study comparison: January 14, 2020, bilateral digital woman screen mammo performed at [facility]. January 12, 2019, bilateral digital woman screen mammo performed at [facility]. 2016, bilateral screening 3D/tomosynthesis, performed at [facility]. 2015, bilateral screening 3D/tomosynthesis, performed at [facility]. FINDINGS: The breast tissue is heterogeneously dense. This may lower the sensitivity of mammography. Screening. Digital screening (2D) mammography was performed on the right in the CC and MLO projections. Additionally, breast tomosynthesis (3D mammography) was performed in the CC and MLO projections. Todays exam was compared to the prior exams. By history, the patient has no complaints of a palpable breast abnormality or other significant breast complaints. The breast is unchanged in size and shape.Once again, dense heterogenous fibroglandular elements are seen in a stable appearing pattern but to such a degree that the sensitivity of the mammogram in detecting cancer is decreased.. There are no brit-soft tissue densities or spiculated masses. There is no internal architectural distortion.Calcifications are again seen in the breast. Some of these are in groups but no one group appears more suspicious than any other. There are no suspicious brit-calcific clusters. Skin thickening or nipple retraction is not present. IMPRESSION: BI-RADS Category 2- Benign Findings. There is no evidence of malignant alteration of the right breast. Followup examination recommended in one year. The Volpara volumetric breast density category is C, the breast is heterogenously dense which may obscure small masses. This mammogram was read with the assistance of [employer],an FDA approved computer aided detection system for mammography. Negative x-ray reports should not delay surgical consultation if a dominant or clinically suspicious mass is present. Not all breast cancers can be identified by mammography. Therefore, we recommend that you continue to perform regular breast self-examination and physical examination and then promptly contact your physician of any concerns or changes. Adenosis and dense breasts may obscure an underlying neoplasm. Assessment: BI-RADS/ACR category 2 mammogram. Benign Findings. Recommendation Routine screening mammogram of both breasts in 1 year. Electronically Signed By: Anjum Sylvester DO 01/16/21 1107
== END ==
LOC: M WHC 09:39
PROVIDERS: ATTEND Advanced Practice Midwife
DX: Z01.419 Encounter for gynecological examination (general) (routine) without abnormal findings (principal); Z12.31 Encounter for screening mammogram for malignant neoplasm of breast; Z80.3 Family history of malignant neoplasm of breast; Z85.3 Personal history of malignant neoplasm of breast; Z92.21 Personal history of antineoplastic chemotherapy; Z92.29 Personal history of other drug therapy; R92.1 Mammographic calcification found on diagnostic imaging of breast
CPT/HCPCS: 77063; 77067; G0101

== ENCOUNTER → 2021-01-25 | Outpatient (CLI) | payer MEDICARE, OTHER ==
[~2021-01-25] MED LIST changes: +METHACHOLINE KIT (J7674) INH ONE
--- NOTE | 2021-01-25 11:48 | PFTRPT ---
Site: [facility], [address] [place], [address] ID: [id number] Name: HUMAIRA VERDIN Visit Date: 01/25/2021 Second ID: [id number] Referring Doctor: RENE AGUILERA Reviewing Doctor: Daren Dorado MD Supervisor Research Kennel: Christine GUTIERREZ, JULI Age: 75 : 1945 Sex: Female Race: Height: 57.00 Inches Weight: 110.00 Lbs BSA: 1.39 Order IDs: [id number] Requested Test(s): <RESP-PFT.METH CHAL> Diagnosis: R05 of albuterol for post bronchodilator. Review Status: Not Reviewed Pre-Bronch Post-Bronch Pred Actual %Pred Actual %Chng SPIROMETRY FVC (L) 1.99 1.90 95 1.82 -4 FEV1 (L) 1.47 1.64 111 1.58 -3 FEV1/FVC (%) 75 86 114 87 FEF 25% (L/sec) 3.88 4.01 103 3.39 -15 FEF 50% (L/sec) 3.19 2.58 80 2.14 -17 FEF 75% (L/sec) 0.86 0.91 105 0.85 -6 FEF 25-75% (L/sec) 1.26 2.14 169 1.83 -14 FEF Max (L/sec) 4.20 4.03 95 3.63 -9 FIVC (L) 1.78 1.47 -17 FIF 50% (L/sec) 2.76 2.72 98 2.59 -4 FIF Max (L/sec) 2.77 2.80 1 Expiratory Time (sec) 5.99 4.99 -16 Back Extrap Vol (L) 0.11 0.09 -16 Time To FEFmax (sec) 0.128 0.104 -18
== END ==
LOC: M CARPUL 10:26
PROVIDERS: ATTEND Nurse Practitioner Family
DX: R05 Cough (principal)
CPT/HCPCS: 94070; 95070; J7674

== ENCOUNTER 2021-01-26 13:00 | Outpatient (RCR) | payer MEDICARE, OTHER ==
[~2021-01-26 13:00] MED LIST changes: -METHACHOLINE KIT (J7674) INH ONE
== END 2021-02-14 ==
LOC: M PT 13:00
PROVIDERS: ATTEND Orthopaedic Surgery Sports Medicine
DX: M75.41 Impingement syndrome of right shoulder (principal)

== ENCOUNTER → 2021-09-10 | Outpatient (CLI) | payer MEDICARE, OTHER ==
[~2021-09-10] MED LIST changes: +ISOVUE-370 76% 100ML VIAL As Ordered ONE; -MONT10TA10 PO; +MONT10TA97 PO
[2021-09-10 15:14] LABS: BASO # 0.1 10^3/uL (0.0-0.2); BASO % 0.5 % (0.0-1.0); EOS # 0.1 10^3/uL (0.0-0.5); EOS % 0.5 % (0.0-3.0); HEMATOCRIT 38.5 % (36.0-47.0); HEMOGLOBIN 13.4 g/dl (12.0-15.5); LYMPH # 1.5 10^3/uL (1.5-5.0); LYMPH % 14.6 % (24.0-44.0); MEAN CORPUSCULAR HEMOGLOBIN 30.2 pg (27.0-33.0); MEAN CORPUSCULAR HGB CONC 34.8 g/dl (32.0-36.5); MEAN CORPUSCULAR VOLUME 86.9 fl (80.0-96.0); MONO % 10.1 % (2.0-8.0); NEUTROPHILS # 7.5 10^3/uL (1.5-8.5); NEUTROPHILS % 73.9 % (36.0-66.0); PLATELET COUNT, AUTOMATED 461 10^3/uL (150-450); RED BLOOD COUNT 4.43 10^6/uL (4.00-5.40); WHITE BLOOD COUNT 10.1 10^3/uL (4.0-10.0)
[2021-09-10 15:43] LABS: ALT/SGPT 31 U/L (12-78); BILIRUBIN,TOTAL 0.7 MG/DL (0.2-1.0); BLOOD UREA NITROGEN 17 MG/DL (7-18); CALCIUM LEVEL 9.4 MG/DL (8.8-10.2); CARBON DIOXIDE LEVEL 23 MEQ/L (21-32); CHLORIDE LEVEL 90 MEQ/L (98-107); CREATININE FOR GFR 0.56 MG/DL (0.55-1.30); FREE T4 1.54 NG/DL (0.76-1.46); GLOMERULAR FILTRATION RATE > 60.0 (>39); GLUCOSE, FASTING 106 MG/DL (70-100); POTASSIUM SERUM 4.4 MEQ/L (3.5-5.1); SODIUM LEVEL 122 MEQ/L (136-145); TOTAL PROTEIN 6.8 GM/DL (6.4-8.2)
== END ==
LOC: M RAD 14:40
PROVIDERS: ATTEND Family Medicine
DX: R42 Dizziness and giddiness (principal); Z79.899 Other long term (current) drug therapy

== ENCOUNTER → 2021-09-14 | Outpatient (CLI) | payer MEDICARE, OTHER ==
[~2021-09-14] MED LIST changes: -ISOVUE-370 76% 100ML VIAL As Ordered ONE; +PROHANCE 279.3MG/ML 15ML VIAL ONE
== END ==
LOC: M PLAIMG 11:39
PROVIDERS: ATTEND Family Medicine
DX: R42 Dizziness and giddiness (principal)
CPT/HCPCS: 70553; A9576

== ENCOUNTER → 2021-10-08 | Outpatient (CLI) | payer MEDICARE, OTHER ==
[~2021-10-08] MED LIST changes: -PROHANCE 279.3MG/ML 15ML VIAL ONE
[2021-10-08 13:36] LABS: FREE T4 1.42 NG/DL (0.76-1.46); THYROID STIMULATING HORMONE 1.2 uIU/ML (0.358-3.740)
== END ==
LOC: M PLALAB 09:57
PROVIDERS: ATTEND Family Medicine
DX: R94.6 Abnormal results of thyroid function studies (principal)

== ENCOUNTER → 2021-10-08 | Outpatient (CLI) | payer MEDICARE, OTHER ==
[2021-10-08 13:25] LABS: HEMATOCRIT 41.4 % (36.0-47.0); HEMOGLOBIN 13.8 g/dl (12.0-15.5); MEAN CORPUSCULAR HEMOGLOBIN 30.3 pg (27.0-33.0); MEAN CORPUSCULAR HGB CONC 33.3 g/dl (32.0-36.5); PLATELET COUNT, AUTOMATED 445 10^3/uL (150-450); RED BLOOD COUNT 4.55 10^6/uL (4.00-5.40); WHITE BLOOD COUNT 7.5 10^3/uL (4.0-10.0)
[2021-10-08 13:30] LABS: ALT/SGPT 34 U/L (12-78); BILIRUBIN,TOTAL 0.7 MG/DL (0.2-1.0); BLOOD UREA NITROGEN 20 MG/DL (7-18); CALCIUM LEVEL 9.4 MG/DL (8.8-10.2); CARBON DIOXIDE LEVEL 26 MEQ/L (21-32); CHLORIDE LEVEL 97 MEQ/L (98-107); CHOLESTEROL LEVEL 129 MG/DL (<200); CHOLESTEROL RISK RATIO 1.573 (<5); CREATININE FOR GFR 0.57 MG/DL (0.55-1.30); GLOMERULAR FILTRATION RATE > 60.0 (>39); GLUCOSE, FASTING 96 MG/DL (70-100); HDL CHOLESTEROL 82 MG/DL (>40); LDL CHOLESTEROL 36 MG/DL (<100); NON-HDL-C 47 MG/DL; SODIUM LEVEL 131 MEQ/L (136-145); TOTAL PROTEIN 6.8 GM/DL (6.4-8.2); TRIGLYCERIDES LEVEL 55 MG/DL (<150)
[2021-10-08 13:42] LABS: HEMOGLOBIN A1c 5.8 %
== END ==
LOC: M PLALAB 09:54
PROVIDERS: ATTEND Family Medicine
DX: K21.9 Gastro-esophageal reflux disease without esophagitis (principal); R05.9 Cough, unspecified; I11.9 Hypertensive heart disease without heart failure; R73.03 Prediabetes; E78.2 Mixed hyperlipidemia; R94.6 Abnormal results of thyroid function studies

== ENCOUNTER → 2022-03-06 | Outpatient (REF) | payer MEDICARE, OTHER | LOC: M WUC 19:39 | PROVIDERS: ATTEND Physician Assistant | DX: N39.0 Urinary tract infection, site not specified (principal) ==

== ENCOUNTER → 2022-04-02 | Outpatient (CLI) | payer MEDICARE, OTHER | LOC: M WHC 14:31 | PROVIDERS: ATTEND Specialist | DX: Z12.31 Encounter for screening mammogram for malignant neoplasm of breast (principal) ==

== ENCOUNTER 2022-05-01 17:48 | Emergency (ER) | payer MEDICARE, OTHER ==
[~2022-05-01] VITALS: Ht 144.8 cm; Wt 50.0 kg
[2022-05-01] MEDS ORDERED: OMEP40CA5 PO (17:58)
[2022-05-01 20:09] VITALS: BP 164/72
== END 2022-05-01 20:33 | disposition home or self-care (01) ==
LOC: M ED 17:48
DX: S00.93XA Contusion of unspecified part of head, initial encounter (principal); S51.811A Laceration without foreign body of right forearm, initial encounter; W19.XXXA Unspecified fall, initial encounter; Y92.830 Public park as the place of occurrence of the external cause; I10 Essential (primary) hypertension; K21.9 Gastro-esophageal reflux disease without esophagitis; J45.909 Unspecified asthma, uncomplicated; Z86.73 Personal history of transient ischemic attack (TIA), and cerebral infarction without residual deficits; Z79.82 Long term (current) use of aspirin; Z79.899 Other long term (current) drug therapy

== ENCOUNTER 2022-05-03 11:02 | Inpatient (IN) | payer MEDICARE, OTHER ==
[~2022-05-03] VITALS: Ht 175.3 cm; Wt 51.1 kg
[~2022-05-03 11:02] MED LIST changes: +OMEP40CA5 PO
[2022-05-03] MEDS ORDERED: LIDOCAINE 1% MDV 20ML VIAL SC ONE (13:55)
[2022-05-03 15:09] LABS: BASO % 0.3 % (0.0-1.0); EOS % 0.2 % (0.0-3.0); HEMOGLOBIN 11.6 g/dl (12.0-15.5); LYMPH # 1.2 10^3/uL (1.5-5.0); LYMPH % 9.8 % (24.0-44.0); MEAN CORPUSCULAR HEMOGLOBIN 30.8 pg (27.0-33.0); MEAN CORPUSCULAR HGB CONC 35.2 g/dl (32.0-36.5); MEAN CORPUSCULAR VOLUME 87.5 fl (80.0-96.0); MONO # 0.9 10^3/uL (0.0-0.8); MONO % 7.4 % (2.0-8.0); NEUTROPHILS # 9.8 10^3/uL (1.5-8.5); NEUTROPHILS % 81.9 % (36.0-66.0); PLATELET COUNT, AUTOMATED 370 10^3/uL (150-450); RED BLOOD COUNT 3.77 10^6/uL (4.00-5.40); WHITE BLOOD COUNT 11.9 10^3/uL (4.0-10.0)
[2022-05-03 15:33] LABS: RSV AMPLIFICATION NEGATIVE (NEGATIVE)
[2022-05-03 15:56] LABS: ALBUMIN 3.6 GM/DL (3.2-5.2); ALT/SGPT 24 U/L (12-78); BILIRUBIN,DIRECT 0.3 MG/DL (0.0-0.2); BILIRUBIN,TOTAL 0.9 MG/DL (0.2-1.0); BLOOD UREA NITROGEN 16 MG/DL (7-18); CALCIUM LEVEL 9.1 MG/DL (8.8-10.2); CARBON DIOXIDE LEVEL 25 MEQ/L (21-32); CHLORIDE LEVEL 90 MEQ/L (98-107); FREE T4 1.52 NG/DL (0.76-1.46); GLOMERULAR FILTRATION RATE > 60.0 (>39); GLUCOSE, FASTING 121 MG/DL (70-100); POTASSIUM SERUM 4.2 MEQ/L (3.5-5.1); SODIUM LEVEL 123 MEQ/L (136-145); THYROID STIMULATING HORMONE 0.791 uIU/ML (0.358-3.740); TOTAL PROTEIN 5.8 GM/DL (6.4-8.2)
[2022-05-03] MEDS ORDERED: MOME50SP2 NARES (17:30)
[2022-05-03] MEDS ORDERED: VITA200012 PO (17:32)
[2022-05-03] MEDS ORDERED: CETI-24 PO (17:35)
[2022-05-03] MEDS ORDERED: HOME MED LIST COMPLETE! XX SCH (17:40)
[2022-05-03] MEDS ORDERED: PERCOCET 5MG/325MG TAB PO PRN (17:45)
[2022-05-03] MEDS ORDERED: hydrALAZINE 20MG/ML 1ML VIAL (J0360 PER 20MG) IV SCH (18:00)
[2022-05-03 18:12] LABS: INR 0.92; PROTHROMBIN TIME 12.8 SECONDS (12.7-14.5)
[2022-05-03] MEDS ORDERED: ALBUTEROL 90 MCG/ACT 8GM HFA INHALER INH PRN (18:55)
[2022-05-03 19:55] LABS: TOTAL 25(OH) VITAMIN D 59.1 NG/ML (30.0-100.0)
[2022-05-03 20:48] VITALS: BP 113/67
[2022-05-03] MEDS: ATORVASTATIN 20 MG TAB PO SCH (21:33)
[2022-05-03] MEDS: MONTELUKAST 10 MG TAB PO SCH (21:33)
[2022-05-03] MEDS: NS 1,000 ML IV SCH (23:00)
[2022-05-04] VITALS: BP 133/55
[2022-05-04] MEDS ORDERED: hydrALAZINE 20MG/ML 1ML VIAL (J0360 PER 20MG) IV PRN (01:00)
[2022-05-04 04:00] VITALS: BP 120/63
[2022-05-04 05:06] LABS: HEMATOCRIT 28.2 % (36.0-47.0); HEMOGLOBIN 9.8 g/dl (12.0-15.5); MEAN CORPUSCULAR HEMOGLOBIN 30.4 pg (27.0-33.0); MEAN CORPUSCULAR HGB CONC 34.8 g/dl (32.0-36.5); MEAN CORPUSCULAR VOLUME 87.6 fl (80.0-96.0); PLATELET COUNT, AUTOMATED 318 10^3/uL (150-450); RED BLOOD COUNT 3.22 10^6/uL (4.00-5.40); WHITE BLOOD COUNT 9.9 10^3/uL (4.0-10.0)
[2022-05-04 05:44] LABS: BLOOD UREA NITROGEN 23 MG/DL (7-18); CALCIUM LEVEL 8.6 MG/DL (8.8-10.2); CARBON DIOXIDE LEVEL 23 MEQ/L (21-32); CHLORIDE LEVEL 93 MEQ/L (98-107); CREATININE FOR GFR 0.52 MG/DL (0.55-1.30); GLOMERULAR FILTRATION RATE > 60.0 (>39); GLUCOSE, FASTING 106 MG/DL (70-100); POTASSIUM SERUM 4.1 MEQ/L (3.5-5.1); SODIUM LEVEL 123 MEQ/L (136-145)
[2022-05-04 08:00] VITALS: BP 113/59
[2022-05-04] MEDS: NS 1,000 ML IV SCH (08:23)
[2022-05-04] MEDS: CETIRIZINE (ZyrTEC) 10 MG TAB PO SCH (09:45)
[2022-05-04] MEDS: OMEPRAZOLE 20MG CAP PO SCH (09:45)
[2022-05-04] MEDS: amLODIPine 5 MG TAB PO SCH (09:45)
[2022-05-04] MEDS: IRBESARTAN 150MG TAB PO SCH (09:45)
[2022-05-04 12:00] VITALS: BP 104/52
[2022-05-04 12:46] LABS: OSMOLALITY URINE 695 MOSM/KG (50-1400)
[2022-05-04 12:56] LABS: SODIUM,RANDOM URINE 21 MEQ/L
[2022-05-04 16:00] VITALS: BP 116/55
[2022-05-04 20:36] VITALS: BP 117/58
[2022-05-04] MEDS: MONTELUKAST 10 MG TAB PO SCH (21:18)
[2022-05-04] MEDS: ATORVASTATIN 20 MG TAB PO SCH (21:18)
[2022-05-04] MEDS: ACETAMINOPHEN TAB 650MG DOSE (2X325MG) PO PRN (21:35)
[2022-05-05] VITALS (7 sets, daily range): BP systolic 111–145; BP diastolic 51–67
[2022-05-05 02:55] LABS: HEMATOCRIT 24.3 % (36.0-47.0); HEMOGLOBIN 8.5 g/dl (12.0-15.5); MEAN CORPUSCULAR HEMOGLOBIN 31.1 pg (27.0-33.0); PLATELET COUNT, AUTOMATED 257 10^3/uL (150-450); RED BLOOD COUNT 2.73 10^6/uL (4.00-5.40); WHITE BLOOD COUNT 9.3 10^3/uL (4.0-10.0)
[2022-05-05 03:23] LABS: BLOOD UREA NITROGEN 24 MG/DL (7-18); CALCIUM LEVEL 7.9 MG/DL (8.8-10.2); CARBON DIOXIDE LEVEL 24 MEQ/L (21-32); CHLORIDE LEVEL 95 MEQ/L (98-107); CREATININE FOR GFR 0.41 MG/DL (0.55-1.30); GLOMERULAR FILTRATION RATE > 60.0 (>39); GLUCOSE, FASTING 110 MG/DL (70-100); SODIUM LEVEL 124 MEQ/L (136-145)
[2022-05-05] MEDS ORDERED: SODIUM CHLORIDE 1 GM TAB PO SCH (09:00)
[2022-05-05] MEDS: OMEPRAZOLE 20MG CAP PO SCH (09:22)
[2022-05-05] MEDS: CETIRIZINE (ZyrTEC) 10 MG TAB PO SCH (09:22)
[2022-05-05] MEDS: IRBESARTAN 150MG TAB PO SCH (09:23)
[2022-05-05] MEDS: amLODIPine 5 MG TAB PO SCH (09:23)
[2022-05-05] MEDS ORDERED: TOLVAPTAN 15 MG TAB (SAMSCA) PO ONE (12:00)
[2022-05-05] MEDS: ACETAMINOPHEN TAB 650MG DOSE (2X325MG) PO PRN ×2 (12:40→21:51)
[2022-05-05 18:35] LABS: HEMATOCRIT 29.5 % (36.0-47.0); HEMOGLOBIN 9.7 g/dl (12.0-15.5); MEAN CORPUSCULAR HEMOGLOBIN 29.8 pg (27.0-33.0); MEAN CORPUSCULAR HGB CONC 32.9 g/dl (32.0-36.5); MEAN CORPUSCULAR VOLUME 90.8 fl (80.0-96.0); PLATELET COUNT, AUTOMATED 323 10^3/uL (150-450); RED BLOOD COUNT 3.25 10^6/uL (4.00-5.40); WHITE BLOOD COUNT 8.2 10^3/uL (4.0-10.0)
[2022-05-05] MEDS: ATORVASTATIN 20 MG TAB PO SCH (21:50)
[2022-05-05] MEDS: MONTELUKAST 10 MG TAB PO SCH (21:51)
[2022-05-06 04:09] VITALS: BP 137/63
[2022-05-06] MEDS ORDERED: traMADol 50 MG TAB PO ONE (04:50)
[2022-05-06 04:59] LABS: HEMATOCRIT 29.1 % (36.0-47.0); HEMOGLOBIN 9.9 g/dl (12.0-15.5); MEAN CORPUSCULAR HEMOGLOBIN 30.5 pg (27.0-33.0); MEAN CORPUSCULAR VOLUME 89.5 fl (80.0-96.0); PLATELET COUNT, AUTOMATED 330 10^3/uL (150-450); RED BLOOD COUNT 3.25 10^6/uL (4.00-5.40); WHITE BLOOD COUNT 8.9 10^3/uL (4.0-10.0)
[2022-05-06 05:37] LABS: BLOOD UREA NITROGEN 15 MG/DL (7-18); CALCIUM LEVEL 8.7 MG/DL (8.8-10.2); CARBON DIOXIDE LEVEL 25 MEQ/L (21-32); CHLORIDE LEVEL 102 MEQ/L (98-107); CREATININE FOR GFR 0.46 MG/DL (0.55-1.30); GLOMERULAR FILTRATION RATE > 60.0 (>39); GLUCOSE, FASTING 114 MG/DL (70-100); POTASSIUM SERUM 4.1 MEQ/L (3.5-5.1); SODIUM LEVEL 135 MEQ/L (136-145)
[2022-05-06] MEDS ORDERED: D5W 1,000 ML IV SCH (07:20)
[2022-05-06] MEDS ORDERED: D5W 500 ML IV ONE (07:25)
[2022-05-06 08:00] VITALS: BP 112/56
[2022-05-06] MEDS: amLODIPine 5 MG TAB PO SCH (08:28)
[2022-05-06] MEDS: CETIRIZINE (ZyrTEC) 10 MG TAB PO SCH (08:28)
[2022-05-06] MEDS: OMEPRAZOLE 20MG CAP PO SCH (08:28)
[2022-05-06] MEDS: IRBESARTAN 150MG TAB PO SCH (08:28)
[2022-05-06] MEDS ORDERED: guaiFENesin DM LIQ 10ML UD PO PRN (08:55)
[2022-05-06 12:00] VITALS: BP 115/54
[2022-05-06 16:00] VITALS: BP 102/54
[2022-05-06 20:00] VITALS: BP 120/56
[2022-05-06] MEDS: MONTELUKAST 10 MG TAB PO SCH (21:22)
[2022-05-06] MEDS: ATORVASTATIN 20 MG TAB PO SCH (21:22)
[2022-05-06] MEDS: ACETAMINOPHEN TAB 650MG DOSE (2X325MG) PO PRN (21:40)
[2022-05-07] VITALS (7 sets, daily range): BP systolic 112–136; BP diastolic 53–62
[2022-05-07] MEDS ORDERED: NS 1,000 ML IV SCH (00:35)
[2022-05-07 05:17] LABS: HEMATOCRIT 23.1 % (36.0-47.0); MEAN CORPUSCULAR HEMOGLOBIN 31.3 pg (27.0-33.0); MEAN CORPUSCULAR HGB CONC 34.2 g/dl (32.0-36.5); MEAN CORPUSCULAR VOLUME 91.7 fl (80.0-96.0); PLATELET COUNT, AUTOMATED 267 10^3/uL (150-450); RED BLOOD COUNT 2.52 10^6/uL (4.00-5.40); WHITE BLOOD COUNT 9.1 10^3/uL (4.0-10.0)
[2022-05-07 05:21] LABS: HEMOGLOBIN 7.9 g/dl (12.0-15.5)
[2022-05-07 05:53] LABS: BLOOD UREA NITROGEN 16 MG/DL (7-18); CALCIUM LEVEL 6.5 MG/DL (8.8-10.2); CARBON DIOXIDE LEVEL 20 MEQ/L (21-32); CHLORIDE LEVEL 111 MEQ/L (98-107); CREATININE FOR GFR 0.25 MG/DL (0.55-1.30); GLOMERULAR FILTRATION RATE > 60.0 (>39); GLUCOSE, FASTING 85 MG/DL (70-100); POTASSIUM SERUM 3.1 MEQ/L (3.5-5.1); SODIUM LEVEL 136 MEQ/L (136-145)
[2022-05-07] MEDS ORDERED: POTASSIUM CHLORIDE 10MEQ SR TABLET PO ONE (07:00)
[2022-05-07] MEDS: OMEPRAZOLE 20MG CAP PO SCH (08:17)
[2022-05-07] MEDS: IRBESARTAN 150MG TAB PO SCH (08:18)
[2022-05-07] MEDS: amLODIPine 5 MG TAB PO SCH (08:18)
[2022-05-07] MEDS: CETIRIZINE (ZyrTEC) 10 MG TAB PO SCH (08:18)
[2022-05-07] MEDS ORDERED: URE-15PO PO (10:17)
[2022-05-07 12:29] LABS: BLOOD UREA NITROGEN 14 MG/DL (7-18); CALCIUM LEVEL 8.6 MG/DL (8.8-10.2); CARBON DIOXIDE LEVEL 25 MEQ/L (21-32); CHLORIDE LEVEL 96 MEQ/L (98-107); CREATININE FOR GFR 0.43 MG/DL (0.55-1.30); GLOMERULAR FILTRATION RATE > 60.0 (>39); GLUCOSE, FASTING 109 MG/DL (70-100); POTASSIUM SERUM 4.7 MEQ/L (3.5-5.1); SODIUM LEVEL 127 MEQ/L (136-145)
== END 2022-05-07 18:12 | disposition home health service (06) | DRG 605 ==
LOC: M ED 11:02 → EDBD 11:02 → M ED INP 11:03 → ENRESERV 18:21 → M PCU 20:46 → OBSVTOIN 05-05 17:06
PROVIDERS: ADMIT Internal Medicine; ATTEND Internal Medicine
DX: S51.811A Laceration without foreign body of right forearm, initial encounter (principal); I69.351 Hemiplegia and hemiparesis following cerebral infarction affecting right dominant side; E22.2 Syndrome of inappropriate secretion of antidiuretic hormone; D62 Acute posthemorrhagic anemia; R29.6 Repeated falls; I10 Essential (primary) hypertension; E78.5 Hyperlipidemia, unspecified; K21.9 Gastro-esophageal reflux disease without esophagitis; M85.88 Other specified disorders of bone density and structure, other site; M54.50 Low back pain, unspecified; R73.03 Prediabetes; Z85.3 Personal history of malignant neoplasm of breast; Z90.12 Acquired absence of left breast and nipple; Z90.49 Acquired absence of other specified parts of digestive tract; Z85.828 Personal history of other malignant neoplasm of skin; Z87.891 Personal history of nicotine dependence; I16.0 Hypertensive urgency; D72.829 Elevated white blood cell count, unspecified; Z79.899 Other long term (current) drug therapy; Z20.822 Contact with and (suspected) exposure to COVID-19; W01.0XXA Fall on same level from slipping, tripping and stumbling without subsequent striking against object, initial encounter; Y92.009 Unspecified place in unspecified non-institutional (private) residence as the place of occurrence of the external cause

== ENCOUNTER 2022-05-16 10:17 | Inpatient (IN) | payer MEDICARE, OTHER ==
[~2022-05-16] VITALS: Ht 144.8 cm; Wt 55.6 kg
[~2022-05-16 10:17] MED LIST changes: +CETI-24 PO; +MOME50SP2 NARES; +URE-15PO PO; +VITA200012 PO
[2022-05-16 11:29] LABS: BASO % 0.2 % (0.0-1.0); EOS % 0.3 % (0.0-3.0); HEMATOCRIT 29.6 % (36.0-47.0); HEMOGLOBIN 10.4 g/dl (12.0-15.5); LYMPH # 0.8 10^3/uL (1.5-5.0); MEAN CORPUSCULAR HGB CONC 35.1 g/dl (32.0-36.5); MEAN CORPUSCULAR VOLUME 88.1 fl (80.0-96.0); MONO # 1.3 10^3/uL (0.0-0.8); MONO % 10.1 % (2.0-8.0); NEUTROPHILS # 10.7 10^3/uL (1.5-8.5); NEUTROPHILS % 82.9 % (36.0-66.0); PLATELET COUNT, AUTOMATED 504 10^3/uL (150-450); RED BLOOD COUNT 3.36 10^6/uL (4.00-5.40); WHITE BLOOD COUNT 12.9 10^3/uL (4.0-10.0)
[2022-05-16 12:14] LABS: THYROID STIMULATING HORMONE 0.833 uIU/ML (0.358-3.740)
[2022-05-16 12:30] LABS: RSV AMPLIFICATION NEGATIVE (NEGATIVE)
[2022-05-16 12:39] LABS: OSMOLALITY SERUM 244 MOSM/KG (280-301)
[2022-05-16 12:58] LABS: BLOOD UREA NITROGEN 24 MG/DL (7-18); CARBON DIOXIDE LEVEL 23 MEQ/L (21-32); CHLORIDE LEVEL 82 MEQ/L (98-107); CREATININE FOR GFR 0.45 MG/DL (0.55-1.30); GLOMERULAR FILTRATION RATE > 60.0 (>39); GLUCOSE, FASTING 116 MG/DL (70-100); POTASSIUM SERUM 4.8 MEQ/L (3.5-5.1); SODIUM LEVEL 114 MEQ/L (136-145)
[2022-05-16] MEDS ORDERED: URE-15PO PO (14:15)
[2022-05-16] MEDS ORDERED: HOME MED LIST COMPLETE! XX SCH (14:20)
[2022-05-16 15:17] LABS: CREATININE,RANDOM URINE 54.6 MG/DL
[2022-05-16] MEDS ORDERED: MAALOX 30 ML SUSP *UDC PO PRN (15:35)
[2022-05-16] MEDS ORDERED: ACETAMINOPHEN TAB 650MG DOSE (2X325MG) PO PRN (15:35)
[2022-05-16] MEDS ORDERED: MOM 30ML SUSPENSION UDC PO PRN (15:35)
[2022-05-16 16:47] LABS: BLOOD UREA NITROGEN 18 MG/DL (7-18); CALCIUM LEVEL 8.8 MG/DL (8.8-10.2); CARBON DIOXIDE LEVEL 24 MEQ/L (21-32); CHLORIDE LEVEL 83 MEQ/L (98-107); CREATININE FOR GFR 0.35 MG/DL (0.55-1.30); GLOMERULAR FILTRATION RATE > 60.0 (>39); GLUCOSE, FASTING 118 MG/DL (70-100); POTASSIUM SERUM 4.6 MEQ/L (3.5-5.1); SODIUM LEVEL 114 MEQ/L (136-145)
[2022-05-16] MEDS ORDERED: ALBUTEROL 90 MCG/ACT 8GM HFA INHALER INH PRN (16:50)
[2022-05-16 17:54] VITALS: BP 146/67
[2022-05-16] MEDS ORDERED: TOLVAPTAN 7.5 MG HALF-TAB PO ONE ×2 (19:00→22:10)
[2022-05-16 20:00] VITALS: BP 110/52
[2022-05-16 20:30] LABS: BLOOD UREA NITROGEN 17 MG/DL (7-18); CALCIUM LEVEL 8.5 MG/DL (8.8-10.2); CARBON DIOXIDE LEVEL 23 MEQ/L (21-32); CHLORIDE LEVEL 82 MEQ/L (98-107); CREATININE FOR GFR 0.57 MG/DL (0.55-1.30); GLOMERULAR FILTRATION RATE > 60.0 (>39); GLUCOSE, FASTING 168 MG/DL (70-100); POTASSIUM SERUM 4.1 MEQ/L (3.5-5.1); SODIUM LEVEL 113 MEQ/L (136-145)
[2022-05-16] MEDS: MONTELUKAST 10 MG TAB PO SCH (21:16)
[2022-05-16] MEDS: CETIRIZINE (ZyrTEC) 10 MG TAB PO SCH (21:16)
[2022-05-16] MEDS: CLOPIDOGREL 75 MG TAB PO SCH (21:16)
[2022-05-16] MEDS: ATORVASTATIN 20 MG TAB PO SCH (21:16)
[2022-05-16] MEDS: DOCUSATE SODIUM 100MG CAPSULE PO SCH (21:16)
[2022-05-17] VITALS (7 sets, daily range): BP systolic 100–144; BP diastolic 51–75
[2022-05-17 00:41] LABS: BLOOD UREA NITROGEN 19 MG/DL (7-18); CALCIUM LEVEL 8.5 MG/DL (8.8-10.2); CARBON DIOXIDE LEVEL 23 MEQ/L (21-32); CHLORIDE LEVEL 85 MEQ/L (98-107); GLOMERULAR FILTRATION RATE > 60.0 (>39); GLUCOSE, FASTING 119 MG/DL (70-100); POTASSIUM SERUM 4.3 MEQ/L (3.5-5.1); SODIUM LEVEL 117 MEQ/L (136-145)
[2022-05-17 05:04] LABS: BLOOD UREA NITROGEN 15 MG/DL (7-18); CALCIUM LEVEL 8.8 MG/DL (8.8-10.2); CARBON DIOXIDE LEVEL 25 MEQ/L (21-32); CHLORIDE LEVEL 93 MEQ/L (98-107); CREATININE FOR GFR 0.51 MG/DL (0.55-1.30); GLOMERULAR FILTRATION RATE > 60.0 (>39); GLUCOSE, FASTING 95 MG/DL (70-100); POTASSIUM SERUM 4.3 MEQ/L (3.5-5.1); SODIUM LEVEL 124 MEQ/L (136-145)
[2022-05-17] MEDS ORDERED: NS 0.45% 1,000 ML IV SCH (05:15)
[2022-05-17] MEDS ORDERED: FLUBLOK(EGG FREE)(QUAD)INFLUENZA VACC 0.5ML SYRINGE 18YRS & OLDER IM.IMMUN ONE (09:00)
[2022-05-17 09:32] LABS: BASO % 0.4 % (0.0-1.0); EOS # 0.1 10^3/uL (0.0-0.5); EOS % 1.3 % (0.0-3.0); HEMATOCRIT 29.7 % (36.0-47.0); HEMOGLOBIN 10.3 g/dl (12.0-15.5); LYMPH # 0.8 10^3/uL (1.5-5.0); LYMPH % 9.3 % (24.0-44.0); MEAN CORPUSCULAR HEMOGLOBIN 30.8 pg (27.0-33.0); MEAN CORPUSCULAR HGB CONC 34.7 g/dl (32.0-36.5); MEAN CORPUSCULAR VOLUME 88.9 fl (80.0-96.0); MONO # 1.2 10^3/uL (0.0-0.8); MONO % 13.5 % (2.0-8.0); NEUTROPHILS # 6.4 10^3/uL (1.5-8.5); PLATELET COUNT, AUTOMATED 513 10^3/uL (150-450); RED BLOOD COUNT 3.34 10^6/uL (4.00-5.40); WHITE BLOOD COUNT 8.5 10^3/uL (4.0-10.0)
[2022-05-17] MEDS: ASPIRIN 81MG ENTERIC TABLET PO SCH (09:57)
[2022-05-17] MEDS: ENOXAPARIN 40MG/0.4ML SYRINGE (J1650 PER 10MG) SC SCH (09:57)
[2022-05-17] MEDS: IRBESARTAN 150MG TAB PO SCH (09:57)
[2022-05-17] MEDS: amLODIPine 5 MG TAB PO SCH (09:58)
[2022-05-17] MEDS: DOCUSATE SODIUM 100MG CAPSULE PO SCH ×2 (09:58→21:16)
[2022-05-17 10:09] LABS: BLOOD UREA NITROGEN 14 MG/DL (7-18); CALCIUM LEVEL 8.8 MG/DL (8.8-10.2); CARBON DIOXIDE LEVEL 25 MEQ/L (21-32); CHLORIDE LEVEL 97 MEQ/L (98-107); CREATININE FOR GFR 0.52 MG/DL (0.55-1.30); GLOMERULAR FILTRATION RATE > 60.0 (>39); GLUCOSE, FASTING 96 MG/DL (70-100); IRON (FE) 22 UG/DL (50-170); PERCENT SATURATION 6.2 % (13.2-45.0); POTASSIUM SERUM 4.6 MEQ/L (3.5-5.1); SODIUM LEVEL 129 MEQ/L (136-145); TOTAL IRON BINDING CAPACITY 353 UG/DL (250-450)
[2022-05-17] MEDS ORDERED: D5W 1,000 ML IV STA (11:10)
[2022-05-17] MEDS ORDERED: DESMOPRESSIN ACETATE 2 MCG in NS 50 ML IV STA (11:10)
[2022-05-17 12:10] LABS: CORTISOL AM 23.7 UG/DL (4.3-22.4)
[2022-05-17 13:01] LABS: BLOOD UREA NITROGEN 19 MG/DL (7-18); CALCIUM LEVEL 8.9 MG/DL (8.8-10.2); CARBON DIOXIDE LEVEL 25 MEQ/L (21-32); CHLORIDE LEVEL 95 MEQ/L (98-107); CREATININE FOR GFR 0.66 MG/DL (0.55-1.30); GLOMERULAR FILTRATION RATE > 60.0 (>39); GLUCOSE, FASTING 109 MG/DL (70-100); POTASSIUM SERUM 4.5 MEQ/L (3.5-5.1); SODIUM LEVEL 128 MEQ/L (136-145)
[2022-05-17] MEDS ORDERED: D5W 500 ML IV SCH (16:00)
[2022-05-17 16:51] LABS: BLOOD UREA NITROGEN 21 MG/DL (7-18); CALCIUM LEVEL 8.4 MG/DL (8.8-10.2); CARBON DIOXIDE LEVEL 24 MEQ/L (21-32); CHLORIDE LEVEL 92 MEQ/L (98-107); CREATININE FOR GFR 0.57 MG/DL (0.55-1.30); GLOMERULAR FILTRATION RATE > 60.0 (>39); GLUCOSE, FASTING 145 MG/DL (70-100); POTASSIUM SERUM 4.2 MEQ/L (3.5-5.1); SODIUM LEVEL 123 MEQ/L (136-145)
[2022-05-17] MEDS ORDERED: DESMOPRESSIN ACETATE 2 MCG in NS 50 ML IV SCH (17:00)
[2022-05-17] MEDS ORDERED: IRON SUCROSE 300 MG in NS 250 ML IV ONE (18:00)
[2022-05-17 20:27] LABS: BLOOD UREA NITROGEN 20 MG/DL (7-18); CALCIUM LEVEL 8.1 MG/DL (8.8-10.2); CARBON DIOXIDE LEVEL 22 MEQ/L (21-32); CHLORIDE LEVEL 89 MEQ/L (98-107); CREATININE FOR GFR 0.58 MG/DL (0.55-1.30); GLOMERULAR FILTRATION RATE > 60.0 (>39); GLUCOSE, FASTING 171 MG/DL (70-100); SODIUM LEVEL 121 MEQ/L (136-145)
[2022-05-17] MEDS: CLOPIDOGREL 75 MG TAB PO SCH (21:16)
[2022-05-17] MEDS: ATORVASTATIN 20 MG TAB PO SCH (21:16)
[2022-05-17] MEDS: MONTELUKAST 10 MG TAB PO SCH (21:16)
[2022-05-17] MEDS: CETIRIZINE (ZyrTEC) 10 MG TAB PO SCH (21:16)
[2022-05-18 04:00] VITALS: BP 120/59
[2022-05-18 07:04] LABS: BASO % 0.5 % (0.0-1.0); EOS # 0.3 10^3/uL (0.0-0.5); EOS % 2.9 % (0.0-3.0); HEMATOCRIT 27.6 % (36.0-47.0); HEMOGLOBIN 9.3 g/dl (12.0-15.5); LYMPH # 1.2 10^3/uL (1.5-5.0); LYMPH % 13.3 % (24.0-44.0); MEAN CORPUSCULAR HEMOGLOBIN 30.3 pg (27.0-33.0); MEAN CORPUSCULAR HGB CONC 33.7 g/dl (32.0-36.5); MEAN CORPUSCULAR VOLUME 89.9 fl (80.0-96.0); MONO # 1.1 10^3/uL (0.0-0.8); MONO % 13.2 % (2.0-8.0); NEUTROPHILS % 69.5 % (36.0-66.0); PLATELET COUNT, AUTOMATED 467 10^3/uL (150-450); RED BLOOD COUNT 3.07 10^6/uL (4.00-5.40); WHITE BLOOD COUNT 8.6 10^3/uL (4.0-10.0)
[2022-05-18 07:35] LABS: BLOOD UREA NITROGEN 13 MG/DL (7-18); CALCIUM LEVEL 8.4 MG/DL (8.8-10.2); CARBON DIOXIDE LEVEL 24 MEQ/L (21-32); CHLORIDE LEVEL 93 MEQ/L (98-107); CREATININE FOR GFR 0.44 MG/DL (0.55-1.30); GLOMERULAR FILTRATION RATE > 60.0 (>39); GLUCOSE, FASTING 87 MG/DL (70-100); POTASSIUM SERUM 4.3 MEQ/L (3.5-5.1); SODIUM LEVEL 124 MEQ/L (136-145)
[2022-05-18 07:39] VITALS: BP 135/63
[2022-05-18] MEDS: ENOXAPARIN 40MG/0.4ML SYRINGE (J1650 PER 10MG) SC SCH (09:11)
[2022-05-18] MEDS: DOCUSATE SODIUM 100MG CAPSULE PO SCH ×2 (09:11→20:46)
[2022-05-18] MEDS: IRBESARTAN 150MG TAB PO SCH (09:11)
[2022-05-18] MEDS: ASPIRIN 81MG ENTERIC TABLET PO SCH (09:11)
[2022-05-18] MEDS: amLODIPine 5 MG TAB PO SCH (09:12)
[2022-05-18] MEDS ORDERED: TOLVAPTAN 7.5 MG HALF-TAB PO ONE (11:00)
[2022-05-18 12:00] VITALS: BP 103/52
[2022-05-18 16:00] VITALS: BP 115/59
[2022-05-18 17:15] LABS: BLOOD UREA NITROGEN 35 MG/DL (7-18); CALCIUM LEVEL 8.4 MG/DL (8.8-10.2); CARBON DIOXIDE LEVEL 26 MEQ/L (21-32); CHLORIDE LEVEL 93 MEQ/L (98-107); CREATININE FOR GFR 0.65 MG/DL (0.55-1.30); GLOMERULAR FILTRATION RATE > 60.0 (>39); GLUCOSE, FASTING 116 MG/DL (70-100); POTASSIUM SERUM 4.6 MEQ/L (3.5-5.1); SODIUM LEVEL 125 MEQ/L (136-145)
[2022-05-18 20:00] VITALS: BP 109/50
[2022-05-18] MEDS: MONTELUKAST 10 MG TAB PO SCH (20:46)
[2022-05-18] MEDS: CLOPIDOGREL 75 MG TAB PO SCH (20:46)
[2022-05-18] MEDS: CETIRIZINE (ZyrTEC) 10 MG TAB PO SCH (20:46)
[2022-05-18] MEDS: ATORVASTATIN 20 MG TAB PO SCH (20:46)
[2022-05-19 00:59] VITALS: BP 107/51
[2022-05-19 03:51] VITALS: BP 115/56
[2022-05-19 06:47] LABS: BASO # 0.1 10^3/uL (0.0-0.2); BASO % 0.7 % (0.0-1.0); EOS # 0.2 10^3/uL (0.0-0.5); EOS % 2.4 % (0.0-3.0); HEMATOCRIT 28.6 % (36.0-47.0); HEMOGLOBIN 9.3 g/dl (12.0-15.5); LYMPH # 1.3 10^3/uL (1.5-5.0); LYMPH % 17.2 % (24.0-44.0); MEAN CORPUSCULAR HEMOGLOBIN 29.9 pg (27.0-33.0); MEAN CORPUSCULAR HGB CONC 32.5 g/dl (32.0-36.5); MONO # 1.1 10^3/uL (0.0-0.8); MONO % 14.9 % (2.0-8.0); NEUTROPHILS # 4.9 10^3/uL (1.5-8.5); NEUTROPHILS % 64.1 % (36.0-66.0); PLATELET COUNT, AUTOMATED 456 10^3/uL (150-450); RED BLOOD COUNT 3.11 10^6/uL (4.00-5.40); WHITE BLOOD COUNT 7.6 10^3/uL (4.0-10.0)
[2022-05-19 07:14] LABS: BLOOD UREA NITROGEN 22 MG/DL (7-18); CALCIUM LEVEL 8.6 MG/DL (8.8-10.2); CARBON DIOXIDE LEVEL 25 MEQ/L (21-32); CHLORIDE LEVEL 98 MEQ/L (98-107); CREATININE FOR GFR 0.46 MG/DL (0.55-1.30); GLOMERULAR FILTRATION RATE > 60.0 (>39); GLUCOSE, FASTING 84 MG/DL (70-100); POTASSIUM SERUM 4.5 MEQ/L (3.5-5.1); SODIUM LEVEL 129 MEQ/L (136-145)
[2022-05-19 07:52] VITALS: BP 115/56
[2022-05-19] MEDS: IRBESARTAN 150MG TAB PO SCH (08:05)
[2022-05-19] MEDS: ENOXAPARIN 40MG/0.4ML SYRINGE (J1650 PER 10MG) SC SCH (08:05)
[2022-05-19] MEDS: ASPIRIN 81MG ENTERIC TABLET PO SCH (08:05)
[2022-05-19] MEDS: amLODIPine 5 MG TAB PO SCH (08:05)
[2022-05-19] MEDS: DOCUSATE SODIUM 100MG CAPSULE PO SCH ×2 (08:05→20:39)
[2022-05-19] MEDS ORDERED: TOLVAPTAN 7.5 MG HALF-TAB PO SCH (10:00)
[2022-05-19 12:08] VITALS: BP 102/52
[2022-05-19 18:27] LABS: BLOOD UREA NITROGEN 33 MG/DL (7-18); CALCIUM LEVEL 8.5 MG/DL (8.8-10.2); CARBON DIOXIDE LEVEL 25 MEQ/L (21-32); CHLORIDE LEVEL 97 MEQ/L (98-107); GLOMERULAR FILTRATION RATE > 60.0 (>39); GLUCOSE, FASTING 120 MG/DL (70-100); POTASSIUM SERUM 4.2 MEQ/L (3.5-5.1); SODIUM LEVEL 129 MEQ/L (136-145)
[2022-05-19 20:00] VITALS: BP 118/51
[2022-05-19] MEDS: CETIRIZINE (ZyrTEC) 10 MG TAB PO SCH (20:39)
[2022-05-19] MEDS: ATORVASTATIN 20 MG TAB PO SCH (20:39)
[2022-05-19] MEDS: MONTELUKAST 10 MG TAB PO SCH (20:39)
[2022-05-19] MEDS: CLOPIDOGREL 75 MG TAB PO SCH (20:39)
[2022-05-19] MEDS ORDERED: guaiFENesin 200 MG TAB PO PRN (23:00)
[2022-05-20 07:30] LABS: BASO # 0.1 10^3/uL (0.0-0.2); BASO % 0.6 % (0.0-1.0); EOS # 0.2 10^3/uL (0.0-0.5); EOS % 2.1 % (0.0-3.0); HEMATOCRIT 28.8 % (36.0-47.0); HEMOGLOBIN 9.2 g/dl (12.0-15.5); LYMPH % 11.6 % (24.0-44.0); MEAN CORPUSCULAR HEMOGLOBIN 29.6 pg (27.0-33.0); MEAN CORPUSCULAR HGB CONC 31.9 g/dl (32.0-36.5); MEAN CORPUSCULAR VOLUME 92.6 fl (80.0-96.0); MONO # 1.1 10^3/uL (0.0-0.8); MONO % 12.4 % (2.0-8.0); NEUTROPHILS # 6.3 10^3/uL (1.5-8.5); NEUTROPHILS % 72.6 % (36.0-66.0); PLATELET COUNT, AUTOMATED 481 10^3/uL (150-450); RED BLOOD COUNT 3.11 10^6/uL (4.00-5.40); WHITE BLOOD COUNT 8.7 10^3/uL (4.0-10.0)
[2022-05-20 08:00] VITALS: BP 126/68
[2022-05-20] MEDS: OMEPRAZOLE 20MG CAP PO SCH (08:04)
[2022-05-20] MEDS: ASPIRIN 81MG ENTERIC TABLET PO SCH (08:04)
[2022-05-20] MEDS: DOCUSATE SODIUM 100MG CAPSULE PO SCH ×2 (08:04→21:03)
[2022-05-20] MEDS: amLODIPine 5 MG TAB PO SCH (08:04)
[2022-05-20] MEDS: IRBESARTAN 150MG TAB PO SCH (08:05)
[2022-05-20] MEDS: ENOXAPARIN 40MG/0.4ML SYRINGE (J1650 PER 10MG) SC SCH (08:05)
[2022-05-20 08:14] LABS: BLOOD UREA NITROGEN 16 MG/DL (7-18); CALCIUM LEVEL 8.5 MG/DL (8.8-10.2); CARBON DIOXIDE LEVEL 26 MEQ/L (21-32); CHLORIDE LEVEL 97 MEQ/L (98-107); CREATININE FOR GFR 0.45 MG/DL (0.55-1.30); GLOMERULAR FILTRATION RATE > 60.0 (>39); GLUCOSE, FASTING 113 MG/DL (70-100); POTASSIUM SERUM 4.5 MEQ/L (3.5-5.1); SODIUM LEVEL 129 MEQ/L (136-145)
[2022-05-20] MEDS: TOLVAPTAN 7.5 MG HALF-TAB PO SCH (10:50)
[2022-05-20 16:00] VITALS: BP 112/55
[2022-05-20 19:18] LABS: BLOOD UREA NITROGEN 14 MG/DL (7-18); CALCIUM LEVEL 8.5 MG/DL (8.8-10.2); CARBON DIOXIDE LEVEL 27 MEQ/L (21-32); CHLORIDE LEVEL 99 MEQ/L (98-107); CREATININE FOR GFR 0.51 MG/DL (0.55-1.30); GLOMERULAR FILTRATION RATE > 60.0 (>39); GLUCOSE, FASTING 133 MG/DL (70-100); POTASSIUM SERUM 4.1 MEQ/L (3.5-5.1); SODIUM LEVEL 130 MEQ/L (136-145)
[2022-05-20 20:00] VITALS: BP 126/58
[2022-05-20] MEDS: CETIRIZINE (ZyrTEC) 10 MG TAB PO SCH (21:03)
[2022-05-20] MEDS: MONTELUKAST 10 MG TAB PO SCH (21:03)
[2022-05-20] MEDS: CLOPIDOGREL 75 MG TAB PO SCH (21:03)
[2022-05-20] MEDS: ATORVASTATIN 20 MG TAB PO SCH (21:03)
[2022-05-21 04:30] VITALS: BP 166/59
[2022-05-21 07:00] LABS: BASO # 0.1 10^3/uL (0.0-0.2); BASO % 0.7 % (0.0-1.0); EOS # 0.3 10^3/uL (0.0-0.5); EOS % 3.7 % (0.0-3.0); HEMATOCRIT 28.8 % (36.0-47.0); HEMOGLOBIN 9.5 g/dl (12.0-15.5); LYMPH # 1.1 10^3/uL (1.5-5.0); LYMPH % 15.8 % (24.0-44.0); MEAN CORPUSCULAR HEMOGLOBIN 30.3 pg (27.0-33.0); MEAN CORPUSCULAR VOLUME 91.7 fl (80.0-96.0); MONO # 0.8 10^3/uL (0.0-0.8); MONO % 11.7 % (2.0-8.0); NEUTROPHILS # 4.7 10^3/uL (1.5-8.5); NEUTROPHILS % 67.4 % (36.0-66.0); PLATELET COUNT, AUTOMATED 471 10^3/uL (150-450); RED BLOOD COUNT 3.14 10^6/uL (4.00-5.40)
[2022-05-21 08:13] LABS: BLOOD UREA NITROGEN 19 MG/DL (7-18); CALCIUM LEVEL 8.8 MG/DL (8.8-10.2); CARBON DIOXIDE LEVEL 26 MEQ/L (21-32); CHLORIDE LEVEL 100 MEQ/L (98-107); CREATININE FOR GFR 0.43 MG/DL (0.55-1.30); GLOMERULAR FILTRATION RATE > 60.0 (>39); GLUCOSE, FASTING 104 MG/DL (70-100); POTASSIUM SERUM 4.6 MEQ/L (3.5-5.1); SODIUM LEVEL 131 MEQ/L (136-145)
[2022-05-21] MEDS: OMEPRAZOLE 20MG CAP PO SCH (09:28)
[2022-05-21] MEDS: DOCUSATE SODIUM 100MG CAPSULE PO SCH ×2 (09:28→20:02)
[2022-05-21] MEDS: TOLVAPTAN 7.5 MG HALF-TAB PO SCH (09:28)
[2022-05-21] MEDS: ASPIRIN 81MG ENTERIC TABLET PO SCH (09:28)
[2022-05-21] MEDS: ENOXAPARIN 40MG/0.4ML SYRINGE (J1650 PER 10MG) SC SCH (09:29)
[2022-05-21] MEDS: amLODIPine 5 MG TAB PO SCH (09:48)
[2022-05-21] MEDS: IRBESARTAN 150MG TAB PO SCH (12:05)
[2022-05-21 16:30] VITALS: BP 113/55
[2022-05-21] MEDS: FERROUS SULFATE 325MG TAB PO SCH (16:39)
[2022-05-21 19:11] LABS: BLOOD UREA NITROGEN 22 MG/DL (7-18); CALCIUM LEVEL 8.9 MG/DL (8.8-10.2); CARBON DIOXIDE LEVEL 25 MEQ/L (21-32); CHLORIDE LEVEL 99 MEQ/L (98-107); CREATININE FOR GFR 0.58 MG/DL (0.55-1.30); GLOMERULAR FILTRATION RATE > 60.0 (>39); GLUCOSE, FASTING 117 MG/DL (70-100); POTASSIUM SERUM 4.5 MEQ/L (3.5-5.1); SODIUM LEVEL 131 MEQ/L (136-145)
[2022-05-21 20:00] VITALS: BP 141/58
[2022-05-21] MEDS: MONTELUKAST 10 MG TAB PO SCH (20:02)
[2022-05-21] MEDS: CLOPIDOGREL 75 MG TAB PO SCH (20:02)
[2022-05-21] MEDS: ATORVASTATIN 20 MG TAB PO SCH (20:02)
[2022-05-21] MEDS: CETIRIZINE (ZyrTEC) 10 MG TAB PO SCH (20:02)
[2022-05-22] VITALS: BP 148/59
[2022-05-22 06:00] VITALS: BP 148/62
[2022-05-22 06:19] LABS: BLOOD UREA NITROGEN 22 MG/DL (7-18); CALCIUM LEVEL 8.6 MG/DL (8.8-10.2); CARBON DIOXIDE LEVEL 24 MEQ/L (21-32); CHLORIDE LEVEL 100 MEQ/L (98-107); CREATININE FOR GFR 0.54 MG/DL (0.55-1.30); GLOMERULAR FILTRATION RATE > 60.0 (>39); GLUCOSE, FASTING 94 MG/DL (70-100); PHOSPHORUS LEVEL 4.1 MG/DL (2.5-4.9); POTASSIUM SERUM 4.5 MEQ/L (3.5-5.1); SODIUM LEVEL 132 MEQ/L (136-145)
[2022-05-22 07:41] VITALS: BP 147/62
[2022-05-22] MEDS: IRBESARTAN 150MG TAB PO SCH (07:42)
[2022-05-22] MEDS: FERROUS SULFATE 325MG TAB PO SCH (07:42)
[2022-05-22] MEDS: DOCUSATE SODIUM 100MG CAPSULE PO SCH ×2 (07:42→20:19)
[2022-05-22] MEDS: ASPIRIN 81MG ENTERIC TABLET PO SCH (07:42)
[2022-05-22] MEDS: amLODIPine 5 MG TAB PO SCH (07:42)
[2022-05-22] MEDS: OMEPRAZOLE 20MG CAP PO SCH (07:42)
[2022-05-22] MEDS: ENOXAPARIN 40MG/0.4ML SYRINGE (J1650 PER 10MG) SC SCH (07:43)
[2022-05-22] MEDS: TOLVAPTAN 15 MG TAB (SAMSCA) PO SCH (10:53)
[2022-05-22] MEDS: CLOPIDOGREL 75 MG TAB PO SCH (20:19)
[2022-05-22] MEDS: MONTELUKAST 10 MG TAB PO SCH (20:20)
[2022-05-22] MEDS: CETIRIZINE (ZyrTEC) 10 MG TAB PO SCH (20:20)
[2022-05-22] MEDS: ATORVASTATIN 20 MG TAB PO SCH (20:20)
[2022-05-23 05:28] VITALS: BP 144/62
[2022-05-23 09:00] VITALS: BP 147/62
[2022-05-23] MEDS: FERROUS SULFATE 325MG TAB PO SCH (09:39)
[2022-05-23] MEDS: OMEPRAZOLE 20MG CAP PO SCH (09:39)
[2022-05-23] MEDS: DOCUSATE SODIUM 100MG CAPSULE PO SCH ×2 (09:39→21:05)
[2022-05-23] MEDS: ASPIRIN 81MG ENTERIC TABLET PO SCH (09:40)
[2022-05-23] MEDS: amLODIPine 5 MG TAB PO SCH (09:40)
[2022-05-23] MEDS: IRBESARTAN 150MG TAB PO SCH (09:40)
[2022-05-23] MEDS: ENOXAPARIN 40MG/0.4ML SYRINGE (J1650 PER 10MG) SC SCH (09:41)
[2022-05-23] MEDS: TOLVAPTAN 15 MG TAB (SAMSCA) PO SCH (09:41)
[2022-05-23] MEDS: CETIRIZINE (ZyrTEC) 10 MG TAB PO SCH (21:05)
[2022-05-23] MEDS: CLOPIDOGREL 75 MG TAB PO SCH (21:06)
[2022-05-23] MEDS: MONTELUKAST 10 MG TAB PO SCH (21:06)
[2022-05-23] MEDS: ATORVASTATIN 20 MG TAB PO SCH (21:06)
[2022-05-24 07:09] LABS: ALBUMIN 3.1 GM/DL (3.2-5.2); BLOOD UREA NITROGEN 25 MG/DL (7-18); CALCIUM LEVEL 8.7 MG/DL (8.8-10.2); CARBON DIOXIDE LEVEL 25 MEQ/L (21-32); CHLORIDE LEVEL 100 MEQ/L (98-107); CREATININE FOR GFR 0.49 MG/DL (0.55-1.30); GLOMERULAR FILTRATION RATE > 60.0 (>39); GLUCOSE, FASTING 104 MG/DL (70-100); POTASSIUM SERUM 4.5 MEQ/L (3.5-5.1); SODIUM LEVEL 132 MEQ/L (136-145)
[2022-05-24] MEDS: amLODIPine 5 MG TAB PO SCH (08:56)
[2022-05-24] MEDS: ASPIRIN 81MG ENTERIC TABLET PO SCH (08:57)
[2022-05-24] MEDS: OMEPRAZOLE 20MG CAP PO SCH (08:57)
[2022-05-24] MEDS: ENOXAPARIN 40MG/0.4ML SYRINGE (J1650 PER 10MG) SC SCH (08:57)
[2022-05-24] MEDS: DOCUSATE SODIUM 100MG CAPSULE PO SCH (08:57)
[2022-05-24] MEDS: FERROUS SULFATE 325MG TAB PO SCH (08:57)
[2022-05-24 08:58] VITALS: BP 147/62
[2022-05-24] MEDS: TOLVAPTAN 15 MG TAB (SAMSCA) PO SCH (08:58)
[2022-05-24] MEDS: IRBESARTAN 150MG TAB PO SCH (08:58)
[2022-05-24] MEDS ORDERED: TOLV15TAB PO (16:43)
[2022-05-24] MEDS ORDERED: COLA100C5 PO (16:43)
[2022-05-24] MEDS ORDERED: FERR1TAB8 PO (16:43)
[2022-05-25] MEDS ORDERED: TOLVAPTAN 15 MG TAB (SAMSCA) PO SCH (10:00)
== END 2022-05-24 17:26 | disposition home or self-care (01) | DRG 645 ==
LOC: M ED 10:17 → M ED INP 14:24 → ENRESERV 15:26 → M PCU 17:36 → M MSPAV 05-21 04:19
PROVIDERS: ADMIT Student in an Organized Health Care Education/Training Program; ATTEND Internal Medicine
DX: E22.2 Syndrome of inappropriate secretion of antidiuretic hormone (principal); E87.6 Hypokalemia; I10 Essential (primary) hypertension; E78.5 Hyperlipidemia, unspecified; R29.6 Repeated falls; K21.9 Gastro-esophageal reflux disease without esophagitis; M81.0 Age-related osteoporosis without current pathological fracture; M19.90 Unspecified osteoarthritis, unspecified site; R73.03 Prediabetes; Z85.3 Personal history of malignant neoplasm of breast; M54.50 Low back pain, unspecified; G89.29 Other chronic pain; Z85.828 Personal history of other malignant neoplasm of skin; Z90.12 Acquired absence of left breast and nipple; Z90.49 Acquired absence of other specified parts of digestive tract; Z87.891 Personal history of nicotine dependence; D72.829 Elevated white blood cell count, unspecified; S41.111A Laceration without foreign body of right upper arm, initial encounter; W01.0XXA Fall on same level from slipping, tripping and stumbling without subsequent striking against object, initial encounter; Y92.009 Unspecified place in unspecified non-institutional (private) residence as the place of occurrence of the external cause; Z86.73 Personal history of transient ischemic attack (TIA), and cerebral infarction without residual deficits; Z20.822 Contact with and (suspected) exposure to COVID-19; Z79.82 Long term (current) use of aspirin; Z79.899 Other long term (current) drug therapy; D50.9 Iron deficiency anemia, unspecified

== ENCOUNTER → 2022-05-30 | Outpatient (REF) | payer MEDICARE, OTHER ==
[~2022-05-30] MED LIST changes: +COLA100C5 PO; +FERR1TAB8 PO; +TOLV15TAB PO
[2022-05-30 15:35] LABS: HEMATOCRIT 32.9 % (36.0-47.0); HEMOGLOBIN 10.8 g/dl (12.0-15.5); MEAN CORPUSCULAR HEMOGLOBIN 30.6 pg (27.0-33.0); MEAN CORPUSCULAR HGB CONC 32.8 g/dl (32.0-36.5); MEAN CORPUSCULAR VOLUME 93.2 fl (80.0-96.0); PLATELET COUNT, AUTOMATED 413 10^3/uL (150-450); RED BLOOD COUNT 3.53 10^6/uL (4.00-5.40); WHITE BLOOD COUNT 6.6 10^3/uL (4.0-10.0)
[2022-05-30 16:48] LABS: ALBUMIN 3.5 GM/DL (3.2-5.2); ALT/SGPT 24 U/L (12-78); BILIRUBIN,TOTAL 0.5 MG/DL (0.2-1.0); BLOOD UREA NITROGEN 22 MG/DL (7-18); CALCIUM LEVEL 8.8 MG/DL (8.8-10.2); CARBON DIOXIDE LEVEL 25 MEQ/L (21-32); CHLORIDE LEVEL 94 MEQ/L (98-107); CREATININE FOR GFR 0.51 MG/DL (0.55-1.30); FREE T4 1.17 NG/DL (0.76-1.46); GLOMERULAR FILTRATION RATE > 60.0 (>39); GLUCOSE, FASTING 82 MG/DL (70-100); POTASSIUM SERUM 4.4 MEQ/L (3.5-5.1); SODIUM LEVEL 125 MEQ/L (136-145); TOTAL PROTEIN 6.2 GM/DL (6.4-8.2)
[2022-05-30 17:42] LABS: HEMOGLOBIN A1c 5.3 %
== END ==
LOC: M SHH 14:55
PROVIDERS: ATTEND Family Medicine
DX: R94.6 Abnormal results of thyroid function studies (principal); K21.9 Gastro-esophageal reflux disease without esophagitis; I11.9 Hypertensive heart disease without heart failure; R73.03 Prediabetes

== ENCOUNTER → 2022-06-05 | Outpatient (REF) | payer MEDICARE, OTHER ==
[2022-06-05 17:26] LABS: BLOOD UREA NITROGEN 14 MG/DL (7-18); CALCIUM LEVEL 9.4 MG/DL (8.8-10.2); CARBON DIOXIDE LEVEL 28 MEQ/L (21-32); CHLORIDE LEVEL 101 MEQ/L (98-107); CREATININE FOR GFR 0.58 MG/DL (0.55-1.30); GLOMERULAR FILTRATION RATE > 60.0 (>39); GLUCOSE, FASTING 111 MG/DL (70-100); POTASSIUM SERUM 4.7 MEQ/L (3.5-5.1); SODIUM LEVEL 134 MEQ/L (136-145)
== END ==
LOC: M SFHCADAM 13:50
PROVIDERS: ATTEND Family Medicine
DX: E23.3 Hypothalamic dysfunction, not elsewhere classified (principal)

== ENCOUNTER → 2022-06-20 | Outpatient (REF) | payer MEDICARE, OTHER ==
[2022-06-20 14:04] LABS: BLOOD UREA NITROGEN 18 MG/DL (7-18); CALCIUM LEVEL 9.8 MG/DL (8.8-10.2); CARBON DIOXIDE LEVEL 27 MEQ/L (21-32); CHLORIDE LEVEL 102 MEQ/L (98-107); CREATININE FOR GFR 0.58 MG/DL (0.55-1.30); GLOMERULAR FILTRATION RATE > 60.0 (>39); GLUCOSE, FASTING 101 MG/DL (70-100); POTASSIUM SERUM 4.5 MEQ/L (3.5-5.1); SODIUM LEVEL 136 MEQ/L (136-145)
== END ==
LOC: M SFHCADAM 10:39
PROVIDERS: ATTEND Physician Assistant
DX: E23.3 Hypothalamic dysfunction, not elsewhere classified (principal)

== ENCOUNTER → 2022-09-24 | Outpatient (REF) | payer MEDICARE, OTHER ==
[2022-09-24 13:26] LABS: HEMOGLOBIN 13.7 g/dl (12.0-15.5); MEAN CORPUSCULAR HEMOGLOBIN 30.4 pg (27.0-33.0); MEAN CORPUSCULAR HGB CONC 32.6 g/dl (32.0-36.5); MEAN CORPUSCULAR VOLUME 93.1 fl (80.0-96.0); PLATELET COUNT, AUTOMATED 344 10^3/uL (150-450); RED BLOOD COUNT 4.51 10^6/uL (4.00-5.40); WHITE BLOOD COUNT 8.3 10^3/uL (4.0-10.0)
[2022-09-24 13:32] LABS: HEMOGLOBIN A1c 5.7 % (4.0-6.0)
[2022-09-24 14:13] LABS: ALKALINE PHOSPHATASE 134 U/L (46-116); ALT/SGPT 21 U/L (7.0-40); AST/SGOT 26 U/L (<34); BILIRUBIN,TOTAL 0.8 MG/DL (0.3-1.2); BLOOD UREA NITROGEN 51 MG/DL (9-23); CALCIUM LEVEL 8.9 MG/DL (8.3-10.6); CARBON DIOXIDE LEVEL 28 MMOL/L (20-31); CHLORIDE LEVEL 101 MMOL/L (98-107); CHOLESTEROL LEVEL 139 MG/DL (<200); CHOLESTEROL RISK RATIO 2.12 (<5); CREATININE FOR GFR 0.61 MG/DL (0.55-1.30); GLOMERULAR FILTRATION RATE > 60.0 (>39); GLUCOSE, FASTING 94 MG/DL (74-106); HDL CHOLESTEROL 65.3 MG/DL (>40); IRON (FE) 97 UG/DL (50-170); LDL CHOLESTEROL 57.7 MG/DL (<100); NON-HDL-C 74 MG/DL; PERCENT SATURATION 29.2 % (13.2-45.0); POTASSIUM SERUM 4.7 MMOL/L (3.5-5.1); SODIUM LEVEL 136 MMOL/L (136-145); TOTAL IRON BINDING CAPACITY 332 UG/DL (250-425); TOTAL PROTEIN 6.5 G/DL (5.7-8.2); TRIGLYCERIDES LEVEL 80 MG/DL (<150)
[2022-09-24 14:18] LABS: FERRITIN 61.5 NG/ML (7.3-270.7)
== END ==
LOC: M SFHCADAM 11:15
PROVIDERS: ATTEND Family Medicine
DX: E23.3 Hypothalamic dysfunction, not elsewhere classified (principal); E87.1 Hypo-osmolality and hyponatremia; E78.2 Mixed hyperlipidemia; R73.03 Prediabetes; D50.9 Iron deficiency anemia, unspecified

== ENCOUNTER → 2023-02-11 | Outpatient (REF) | payer MEDICARE, OTHER ==
[2023-02-11 16:28] LABS: HEMATOCRIT 42.7 % (36.0-47.0); MEAN CORPUSCULAR HEMOGLOBIN 30.5 pg (27.0-33.0); MEAN CORPUSCULAR HGB CONC 32.8 g/dl (32.0-36.5); PLATELET COUNT, AUTOMATED 375 10^3/uL (150-450); RED BLOOD COUNT 4.59 10^6/uL (4.00-5.40)
[2023-02-11 16:50] LABS: BLOOD UREA NITROGEN 44 MG/DL (9-23); CALCIUM LEVEL 9.4 MG/DL (8.3-10.6); CARBON DIOXIDE LEVEL 27 MMOL/L (20-31); CHLORIDE LEVEL 104 MMOL/L (98-107); CREATININE FOR GFR 0.58 MG/DL (0.55-1.30); GLOMERULAR FILTRATION RATE > 60.0 (>39); GLUCOSE, FASTING 91 MG/DL (74-106); POTASSIUM SERUM 4.5 MMOL/L (3.5-5.1); SODIUM LEVEL 137 MMOL/L (136-145)
== END ==
LOC: M SFHCADAM 14:14
PROVIDERS: ATTEND Family Medicine
DX: E23.3 Hypothalamic dysfunction, not elsewhere classified (principal); D50.9 Iron deficiency anemia, unspecified

== ENCOUNTER → 2023-04-04 | Outpatient (CLI) | payer MEDICARE, OTHER | LOC: M WHC 11:10 | PROVIDERS: ATTEND Specialist | DX: Z12.31 Encounter for screening mammogram for malignant neoplasm of breast (principal); Z85.3 Personal history of malignant neoplasm of breast; Z90.12 Acquired absence of left breast and nipple ==

== ENCOUNTER → 2023-04-04 | Outpatient (REF) | payer MEDICARE, OTHER | LOC: M SFHCWAGY 13:03 | PROVIDERS: ATTEND Specialist | DX: Z12.4 Encounter for screening for malignant neoplasm of cervix (principal); R87.610 Atypical squamous cells of undetermined significance on cytologic smear of cervix (ASC-US); N95.2 Postmenopausal atrophic vaginitis | CPT/HCPCS: 87624; G0123 ==

== ENCOUNTER 2023-06-11 12:57 | Day surgery (SDC) | payer MEDICARE, OTHER ==
[~2023-06-11] VITALS: Ht 144.8 cm; Wt 56.6 kg
[~2023-06-11 12:57] MED LIST changes: +BIOT1CAP2 PO; +MAGN400C PO; +MECL-209 PO; -MECL1TAB31 PO; +ceFAZolin SOD 2 GM in IV 1 EA IV ONE
[2023-06-11] MEDS ORDERED: MIDAZOLAM INJ 2MG/2ML VIAL As Ordered ONE (14:31)
[2023-06-11] MEDS ORDERED: fentaNYL 100 MCG/2 ML INJECTION As Ordered ONE (14:31)
[2023-06-11] MEDS ORDERED: ONDANSETRON 4MG 2ML VIAL As Ordered ONE (14:31)
[2023-06-11] MEDS ORDERED: propofoL 200 MG/20 ML VIAL As Ordered ONE (14:31)
[2023-06-11] MEDS ORDERED: LIDOCAINE 2% 100MG/5ML SDV (FOR ANES.) As Ordered ONE (14:31)
[2023-06-11] MEDS ORDERED: LIDOCAINE 1% SDV 30ML VIAL As Ordered ONE (14:33)
[2023-06-11] MEDS ORDERED: ceFAZolin 1GM VIAL As Ordered ONE (15:36)
[2023-06-11 17:26] VITALS: BP 139/70; TEMP 97.9; O2SAT 97
== END 2023-06-11 18:08 | disposition home or self-care (01) ==
LOC: M SDC 12:57
PROVIDERS: ATTEND Internal Medicine Cardiovascular Disease
DX: Z45.09 Encounter for adjustment and management of other cardiac device (principal); I10 Essential (primary) hypertension; E78.5 Hyperlipidemia, unspecified; K21.9 Gastro-esophageal reflux disease without esophagitis; Z86.73 Personal history of transient ischemic attack (TIA), and cerebral infarction without residual deficits; Z79.02 Long term (current) use of antithrombotics/antiplatelets; Z79.82 Long term (current) use of aspirin; Z85.3 Personal history of malignant neoplasm of breast; Z79.899 Other long term (current) drug therapy; Z79.51 Long term (current) use of inhaled steroids
CPT/HCPCS: 33286; 76000; J0690; J2250; J2405; J3010

== ENCOUNTER → 2023-10-29 | Outpatient (REF) | payer MEDICARE, OTHER ==
[~2023-10-29] MED LIST changes: +IRBE150T27 PO; -IRBE150T7 PO; -ceFAZolin SOD 2 GM in IV 1 EA IV ONE
[2023-10-29 16:33] LABS: ALKALINE PHOSPHATASE 134 U/L (46-116); ALT/SGPT 25 U/L (7.0-40); AST/SGOT 19 U/L (<34); BILIRUBIN,TOTAL 0.6 MG/DL (0.3-1.2); BLOOD UREA NITROGEN 52 MG/DL (9-23); CALCIUM LEVEL 8.7 MG/DL (8.3-10.6); CARBON DIOXIDE LEVEL 27 MMOL/L (20-31); CHLORIDE LEVEL 104 MMOL/L (98-107); CHOLESTEROL LEVEL 111 MG/DL (<200); CHOLESTEROL RISK RATIO 2.15 (<5); CREATININE FOR GFR 0.54 MG/DL (0.55-1.30); GLOMERULAR FILTRATION RATE > 60.0 (>39); GLUCOSE, FASTING 83 MG/DL (74-106); HDL CHOLESTEROL 51.4 MG/DL (>40); LDL CHOLESTEROL 41.6 MG/DL (<100); MAGNESIUM LEVEL 1.8 MG/DL (1.8-2.4); NON-HDL-C 59.6 MG/DL; POTASSIUM SERUM 4.2 MMOL/L (3.5-5.1); SODIUM LEVEL 137 MMOL/L (136-145); TOTAL PROTEIN 6.4 G/DL (5.7-8.2); TRIGLYCERIDES LEVEL 90 MG/DL (<150)
[2023-10-29 17:06] LABS: HEMOGLOBIN A1c 5.8 % (4.0-6.0)
== END ==
LOC: M SFHCADAM 10:54
PROVIDERS: ATTEND Family Medicine
DX: E78.2 Mixed hyperlipidemia (principal); R73.03 Prediabetes; I11.9 Hypertensive heart disease without heart failure

== ENCOUNTER → 2024-04-07 | Outpatient (CLI) | payer MEDICARE, OTHER ==
[~2024-04-07] MED LIST changes: -AZEL0.055; +AZEL1SPR4; +INDA2.5T2 PO; -INDA25TAB PO
== END ==
LOC: M WHC 14:36
PROVIDERS: ATTEND Specialist
DX: Z12.31 Encounter for screening mammogram for malignant neoplasm of breast (principal); Z85.3 Personal history of malignant neoplasm of breast; R92.333 Mammographic heterogeneous density, bilateral breasts

== ENCOUNTER → 2024-04-07 | Outpatient (REF) | payer MEDICARE, OTHER ==
[2024-04-13 12:13] LABS: HPV APTIMA Not Detected (Not Detected)
== END ==
LOC: M SFHCWAGY 10:00
PROVIDERS: ATTEND Specialist
DX: Z12.4 Encounter for screening for malignant neoplasm of cervix (principal)
CPT/HCPCS: 87624; G0123

== ENCOUNTER → 2024-05-07 | Outpatient (CLI) | payer MEDICARE, OTHER | LOC: M ADAMS 13:51 | DX: M25.542 Pain in joints of left hand (principal); M19.042 Primary osteoarthritis, left hand ==

== ENCOUNTER → 2024-09-15 | Outpatient (REF) | payer MEDICARE, OTHER ==
[2024-09-15 13:03] LABS: BASO # 0.1 10^3/uL (0.0-0.2); BASO % 0.8 % (0.0-1.0); EOS # 0.4 10^3/uL (0.0-0.5); EOS % 4.7 % (0.0-3.0); HEMOGLOBIN 13.9 g/dl (12.0-15.5); LYMPH # 1.6 10^3/uL (1.5-5.0); LYMPH % 20.5 % (24.0-44.0); MEAN CORPUSCULAR HEMOGLOBIN 31.2 pg (27.0-33.0); MEAN CORPUSCULAR HGB CONC 33.1 g/dl (32.0-36.5); MEAN CORPUSCULAR VOLUME 94.4 fl (80.0-96.0); MONO # 0.7 10^3/uL (0.0-0.8); MONO % 9.1 % (2.0-8.0); NEUTROPHILS # 4.9 10^3/uL (1.5-8.5); NEUTROPHILS % 64.5 % (36.0-66.0); PLATELET COUNT, AUTOMATED 333 10^3/uL (150-450); RED BLOOD COUNT 4.45 10^6/uL (4.00-5.40); WHITE BLOOD COUNT 7.6 10^3/uL (4.0-10.0)
[2024-09-15 13:19] LABS: HEMOGLOBIN A1c 5.9 % (4.0-6.0)
[2024-09-15 13:37] LABS: ALBUMIN 3.8 G/DL (3.2-5.2); ALKALINE PHOSPHATASE 125 U/L (35-104); ALT/SGPT 25 U/L (7.0-40); AST/SGOT 19 U/L (<34); BILIRUBIN,TOTAL 0.7 MG/DL (0.3-1.2); BLOOD UREA NITROGEN 56 MG/DL (9-23); CALCIUM LEVEL 9.2 MG/DL (8.3-10.6); CARBON DIOXIDE LEVEL 28 MMOL/L (20-31); CHLORIDE LEVEL 101 MMOL/L (98-107); CHOLESTEROL LEVEL 130 MG/DL (<200); CHOLESTEROL RISK RATIO 2.31 (<5); CREATININE FOR GFR 0.62 MG/DL (0.55-1.30); GLOMERULAR FILTRATION RATE > 60.0 (>39); GLUCOSE, FASTING 72 MG/DL (74-106); HDL CHOLESTEROL 56.2 MG/DL (>40); LDL CHOLESTEROL 55.2 MG/DL (<100); MAGNESIUM LEVEL 1.9 MG/DL (1.8-2.4); NON-HDL-C 73.8 MG/DL; POTASSIUM SERUM 4.6 MMOL/L (3.5-5.1); SODIUM LEVEL 140 MMOL/L (136-145); TOTAL PROTEIN 6.5 G/DL (5.7-8.2); TRIGLYCERIDES LEVEL 93 MG/DL (<150)
[2024-09-15 13:38] LABS: TOTAL 25(OH) VITAMIN D 63.4 NG/ML (20.0-100.0)
== END ==
LOC: M SFHCADAM 10:51
PROVIDERS: ATTEND Family Medicine
DX: R73.03 Prediabetes (principal); I11.9 Hypertensive heart disease without heart failure; M15.9 Polyosteoarthritis, unspecified; Z79.899 Other long term (current) drug therapy

== ENCOUNTER → 2025-05-04 | Outpatient (CLI) | payer MEDICARE, OTHER ==
[~2025-05-04] MED LIST changes: +TOLV15TA PO; -TOLV15TAB PO
== END ==
LOC: M WHC 11:00
PROVIDERS: ATTEND Specialist
DX: Z12.31 Encounter for screening mammogram for malignant neoplasm of breast (principal); Z85.3 Personal history of malignant neoplasm of breast; Z90.12 Acquired absence of left breast and nipple; R92.331 Mammographic heterogeneous density, right breast
CPT/HCPCS: 77067; G0279